=== PATIENT | female | born 1965 | race Caucasian/White ===

== ENCOUNTER 2017-03-22 15:59 | Inpatient (IN) | payer BC ==
[2017-03-22] MEDS ORDERED: SODIUM CHLORIDE 0.9% 1,000 ML IV ONE (16:50)
--- NOTE | 2017-03-22 17:25 | ED ---
Syncope [facility] - General Chief Complaint: Syncope Stated Complaint: Syncope Time Seen by Provider: 03/22/17 16:29 Source: patient Mode of arrival: ambulatory Limitations: no limitations - History of Present Illness Initial Comments: Patient is a 51-year-old female who presents with a chief complaint of a syncopal episode. Patient states that she woke up at 4:00 this morning, drove her work, she got home she took her dogs outside. This was at 5:00 in the morning. Patient states that she doesn't remember what happened however she woke up on her deck at about 1:00 PM. Patient does not admit to any prodromal symptoms. Patient has not had any previous episodes of similar events. The patient does admit that a couple days ago at work she became very lightheaded and needed to catch her breath but states that her symptoms resolved after about 3 minutes. Patient cannot identify any inciting incidences. She does not describe any aggravating or alleviating factors. Patient does admit to having chronic headaches in the morning of which she has not had previously worked up before. Currently the patient is asymptomatic, she has no other complaints at this time - Related Data Home Medications Medication Instructions Recorded Confirmed Umeclidinium Brm/Vilanterol Tr 1 puff INHALATION RT-DAILY 03/22/17 03/22/17 [Anoro Ellipta 62.5-25 Mcg INH] Allergies Allergy/AdvReac Type Severity Reaction Status Date / Time aspirin Allergy Anaphylaxis Verified 03/22/17 16:37 codeine Allergy Unknown Verified 03/22/17 16:37 morphine Allergy Unknown Verified 03/22/17 16:37 Review of Systems ROS Statement: Those systems with pertinent positive or pertinent negative responses have been documented in the HPI. ROS Other: All systems not noted in ROS Statement are negative. Constitutional: Denies: fever, chills Eyes: Denies: vision change ENT: Denies: ear pain, throat pain Respiratory: Denies: dyspnea Cardiovascular: Denies: chest pain, palpitations Endocrine: Denies: fatigue Gastrointestinal: Denies: abdominal pain, nausea, vomiting Genitourinary: Denies: dysuria Musculoskeletal: Denies: back pain Skin: Denies: rash Neurological: Reports: headache Past Medical History Past Medical History: Cancer, COPD, Thyroid Disorder Additional Past Medical History / Comment(s): uterine cancer History of Any Multi-Drug Resistant Organisms: None Reported Past Surgical History: Orthopedic Surgery Past Psychological History: No Psychological Hx Reported Smoking Status: Current every day smoker Past Alcohol Use History: None Reported Past Drug Use History: None Reported General Exam Limitations: no limitations General appearance: alert, in no apparent distress Head exam: Present: atraumatic, normocephalic Eye exam: Present: normal appearance ENT exam: Present: normal exam, mucous membranes moist Neck exam: Present: normal inspection Respiratory exam: Present: decreased breath sounds. Absent: wheezes, rhonchi Cardiovascular Exam: Present: regular rate, normal rhythm, normal heart sounds GI/Abdominal exam: Present: soft. 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] Respiratory 18 18 16 Rate Blood Pressure 121/58 133/72 133/72 Blood Pressure [Sitting] Blood Pressure [Standing] Blood Pressure [Supine] O2 Sat by Pulse 100 100 96 Oximetry 03/22/17 03/22/17 20:00 20:41 Temperature 97 F L Pulse Rate 55 L Pulse Rate [ 53 L Sitting] Pulse Rate [ 66 Standing] Pulse Rate [ 55 L 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 On initial evaluation, vital signs are stable, patient is in no acute distress. Patient is somewhat of a poor historian and therefore it is difficult to narrow down what may have caused the syncopal episode. We'll send basic cardiac workup, patient will have a CT of the head. CPK was sent given the patient was on her deck for about 7 hours. I discussed the presenting symptoms with the patient stated that she would benefit from admission for further workup of syncope. Patient is agreeable to this plan. 8:57 PM I spoke with Dr. Reilly regarding this patient's case. He agrees to admission with consultation to cardiology, and neurology. Lab evaluation of this patient is unremarkable. Radiographic evaluation of the chest and computed tomography scan of the head showed no acute abnormalities. On reexamination, the patient is asymptomatic. Care plan was reviewed with her and her who is now a bedside, they are agreeable to the current care plan. Currently, the patient is stable for transfer to the floor. - Lab Data Result diagrams: 03/22/17 17:06 03/22/17 17:06 Lab Results 03/22/17 03/22/17 03/22/17 Range/Units 17:06 17:06 17:06 WBC 9.8 (3.8-10.6) k/uL RBC 5.10 (3.80-5.40) m/uL Hgb 16.0 (11.4-16.0) gm/dL Hct 48.5 H (34.0-46.0) % MCV 95.1 (80.0-100.0) fL MCH 31.3 (25.0-35.0) pg MCHC 32.9 (31.0-37.0) g/dL RDW 13.9 (11.5-15.5) % Plt Count 365 (150-450) k/uL Neutrophils % 72 % Lymphocytes % 20 % Monocytes % 4 % Eosinophils % 2 % Basophils % 1 % Neutrophils # 7.0 (1.3-7.7) k/uL Lymphocytes # 2.0 (1.0-4.8) k/uL Monocytes # 0.4 (0-1.0) k/uL Eosinophils # 0.2 (0-0.7) k/uL Basophils # 0.1 (0-0.2) k/uL D-Dimer 0.23 (<0.60) mg/L FEU Sodium 139 (137-145) mmol/L Potassium 4.5 (3.5-5.1) mmol/L Chloride 105 (98-107) mmol/L Carbon Dioxide 24 (22-30) mmol/L Anion Gap 10 mmol/L BUN 12 (7-17) mg/dL Creatinine 0.80 (0.52-1.04) mg/dL Est GFR (MDRD) Af Amer >60 (>60 ml/min/1.73 sqM) Est GFR (MDRD) Non-Af >60 (>60 ml/min/1.73 sqM) Glucose 90 (74-99) mg/dL Calcium 9.7 (8.4-10.2) mg/dL Creatine Kinase (30-135) U/L Troponin I (0.000-0.034) ng/mL NT-Pro-B Natriuret Pep pg/mL 03/22/17 03/22/17 03/22/17 Range/Units 17:06 17:06 17:06 WBC (3.8-10.6) k/uL RBC (3.80-5.40) m/uL Hgb (11.4-16.0) gm/dL Hct (34.0-46.0) % MCV (80.0-100.0) fL MCH (25.0-35.0) pg MCHC (31.0-37.0) g/dL RDW (11.5-15.5) % Plt Count (150-450) k/uL Neutrophils % % Lymphocytes % % Monocytes % % Eosinophils % % Basophils % % Neutrophils # (1.3-7.7) k/uL Lymphocytes # (1.0-4.8) k/uL Monocytes # (0-1.0) k/uL Eosinophils # (0-0.7) k/uL Basophils # (0-0.2) k/uL D-Dimer (<0.60) mg/L FEU Sodium (137-145) mmol/L Potassium (3.5-5.1) mmol/L Chloride (98-107) mmol/L Carbon Dioxide (22-30) mmol/L Anion Gap mmol/L BUN (7-17) mg/dL Creatinine (0.52-1.04) mg/dL Est GFR (MDRD) Af Amer (>60 ml/min/1.73 sqM) Est GFR (MDRD) Non-Af (>60 ml/min/1.73 sqM) Glucose (74-99) mg/dL Calcium (8.4-10.2) mg/dL Creatine Kinase 152 H (30-135) U/L Troponin I <0.012 (0.000-0.034) ng/mL NT-Pro-B Natriuret Pep 87 pg/mL Disposition Clinical Impression: Syncope Disposition: ADMITTED IP TO THIS HOSP Condition: Good Referrals: Patrick Reilly MD [Primary Care Provider] - 1-2 days Decision to Admit Reason: Admit from EC - Out of Hospital Transfer - Req. Specs Out of Hospital Transfer - Requested Specifics: Other Non-Acute
[2017-03-22 17:36] LABS: Basophils # (A) 0.1 k/uL (0-0.2); Basophils % (A) 1 %; CH 32.3; CHCM 34.1; Eosinophils # (A) 0.2 k/uL (0-0.7); Eosinophils % (A) 2 %; HCT 48.5 % (34.0-46.0); HDW 2.13; Luc # (Auto) 0.13; Luc % (Auto) 1; Lymphocytes % (A) 20 %; MCH 31.3 pg (25.0-35.0); MCHC 32.9 g/dL (31.0-37.0); MCV 95.1 fL (80.0-100.0); Mean Platelet Volume 7.2; Monocytes # (A) 0.4 k/uL (0-1.0); Monocytes % (A) 4 %; Neutrophils % (A) 72 %; RDW 13.9 % (11.5-15.5); WBC 9.8 k/uL (3.8-10.6); WBC (Perox) 9.98
[2017-03-22 17:39] LABS: Anion Gap 10 mmol/L; Blood Urea Nitrogen 12 mg/dL (7-17); Calcium 9.7 mg/dL (8.4-10.2); Carbon Dioxide 24 mmol/L (22-30); Chloride 105 mmol/L (98-107); Glucose 90 mg/dL (74-99); Non-African American GFR(MDRD) >60 (>60 ml/min/1.73 sqM); Potassium 4.5 mmol/L (3.5-5.1); Sodium 139 mmol/L (137-145)
--- NOTE | 2017-03-22 19:46 | CT ---
EXAMINATION TYPE: CT brain wo con DATE OF EXAM: 03/22/2017 COMPARISON: NONE HISTORY: SYNCOPE CT DLP: 968.3 mGycm Automated exposure control for dose reduction was used. FINDINGS: Ventricles and sulci appear normal. There is no mass effect nor midline shift. There is no sign of in tracranial hemorrhage. Calvarium appears normal. IMPRESSION: NORMAL UNENHANCED HEAD CT SCAN.
--- NOTE | 2017-03-22 19:53 | XR ---
EXAMINATION TYPE: XR chest 2V DATE OF EXAM: 03/22/2017 COMPARISON: NONE HISTORY: Migraine TECHNIQUE: Frontal and lateral views of the chest are obtained. FINDINGS: Heart is normal. There is pulmonary hyperinflation with flattening of the diaphragm. There is mild thoracic dextroscoliosis. There is no sign of pleural effusion. There are small linear densi ties in both lungs consistent with bullous emphysema. IMPRESSION: Bullous emphysema. No definite acute lung disease. Normal heart.
[2017-03-22] MEDS ORDERED: NALOXONE 0.4 MG/ML 1 ML VIAL IV PRN (20:15)
[2017-03-23 07:20] LABS: Glucose,Whole Blood 84 mg/dL (75-99)
[2017-03-23] MEDS ORDERED: NON-FORMULARY DRUG (Umeclidinium Brm/Vilanterol Tr [Anoro Ellipta 62.5-25 Mcg Inh] 1 PUFF) INHALATION SCH (08:00)
[2017-03-23 08:30] LABS: Basophils # (A) 0.1 k/uL (0-0.2); Basophils % (A) 1 %; CH 32.2; CHCM 33.7; Eosinophils # (A) 0.3 k/uL (0-0.7); Eosinophils % (A) 4 %; HCT 39.3 % (34.0-46.0); HDW 2.14; HGB 13.1 gm/dL (11.4-16.0); Luc # (Auto) 0.13; Luc % (Auto) 2; Lymphocytes % (A) 28 %; MCH 31.9 pg (25.0-35.0); MCHC 33.2 g/dL (31.0-37.0); MCV 95.9 fL (80.0-100.0); Mean Platelet Volume 7.1; Monocytes # (A) 0.4 k/uL (0-1.0); Monocytes % (A) 5 %; Neutrophils # (A) 4.4 k/uL (1.3-7.7); Neutrophils % (A) 60 %; RBC 4.09 m/uL (3.80-5.40); RDW 13.5 % (11.5-15.5); WBC 7.3 k/uL (3.8-10.6)
[2017-03-23 08:52] LABS: Anion Gap 6 mmol/L; Blood Urea Nitrogen 12 mg/dL (7-17); Calcium 8.6 mg/dL (8.4-10.2); Carbon Dioxide 22 mmol/L (22-30); Chloride 112 mmol/L (98-107); Glucose 79 mg/dL (74-99); Non-African American GFR(MDRD) >60 (>60 ml/min/1.73 sqM); Potassium 4.5 mmol/L (3.5-5.1); Sodium 140 mmol/L (137-145)
[2017-03-23 11:52] VITALS: BMI 18.8
[2017-03-23 12:48] LABS: Glucose,Whole Blood 75 mg/dL (75-99)
[2017-03-23] MEDS ORDERED: LORazepam 0.5 MG TAB PO PRN (14:08)
--- NOTE | 2017-03-23 15:12 | CONS ---
CONSULTATION ATTENDING: Dr. Reilly. Mrs. Wesley is a 51-year-old female with known history of chronic tobacco use, history of chronic obstructive lung disease, who presented with a syncopal episode. According to her, she took her to work at 4:00, came back home to take the dog outside around 5:00 and then she remembers waking up on the deck around 1:00. She had her coat on when she came to. She did not have any focal weakness. She was feeling cold. She did not recall anything of the event. She denies any symptoms prior to her passing out. No palpitation. No dizziness. No chest pain. She has dyspnea on exertion related to her chronic tobacco use, although she cut down on her smoking to a few cigarettes a day. She used to smoke up to a pack and half a day. She denies any prior cardiac history. She has no clear PND, orthopnea or significant peripheral edema. She has no recent cardiac workup. Her coronary risk factors are remarkable for smoking. No history of hypertension. No diabetes. She has hypoglycemia in the past. Her lipid profile is not available to. Her only medications at home Anoro Ellipta. REVIEW OF SYSTEMS: RESPIRATORY: She has chronic obstructive lung disease with dyspnea on exertion. No recent fever. GI: No recent GI bleeding. No peptic ulcer disease. : No dysuria or hematuria. NERVOUS: She carries a diagnosis of stroke in the past. SOCIAL HISTORY: She denies any alcohol intake. PHYSICAL EXAMINATION: A 51-year-old female; alert, oriented, in no apparent distress. Blood pressure running in the high 90s up to the 130s. Heart rate in the 50s and 60s. HEAD: Normocephalic. EYES: Sclerae anicteric. NECK: Good carotid upstroke. No bruits. No jugular venous distention. LUNGS: With decreased air exchange. No wheezes. HEART: Regular rate and rhythm. S1, S2. No S3. No rub appreciated. ABDOMEN: Soft, nontender. Positive bowel sounds. No organomegaly. EXTREMITIES: No edema. Intact distal pulses. LAB DATA: Revealed troponin less than 0.012. NT-proBNP of 87, BUN and creatinine of 12 and 0.87, potassium 4.5. Hemoglobin 13.1. EKG was sinus mechanism with RSR with no acute changes. Chest x-ray revealed no infiltrate with bullous emphysema. Brain CT showed no acute changes. IMPRESSION: 1. Syncopal episode of unclear etiology. No clear evidence to suggest ischemic event as the etiology. There is no clear documented hypoglycemia. No evidence to suggest ischemic event. 2. Chronic obstructive lung disease with chronic tobacco use. RECOMMENDATION: From the cardiac standpoint, will continue telemetry monitoring. I will obtain echocardiogram with Doppler. Will increase her level of activity and depending on the finding, further recommendation will be made. Thank you for this consult. Will follow with you. MMODL / IJN: [id number] /
--- NOTE | 2017-03-23 16:09 | ECHOF ---
Referral Reason:syncope MEASUREMENTS -------- HEIGHT: 162.6 cm WEIGHT: 49.9 kg BP: 98/60 RVIDd: 2.7 cm (< 3.3) IVSd: 0.8 cm (0.6 - 1.1) LVIDd: 3.8 cm (3.9 - 5.3) LVPWd: 1.0 cm (0.6 - 1.1) IVSs: 1.3 cm LVIDs: 2.3 cm LVPWs: 1.5 cm LA Diam: 2.5 cm (2.7 - 3.8) LAESV Index (A-L): 21.75 ml/m Ao Diam: 3.0 cm (2.0 - 3.7) AV Cusp: 1.6 cm (1.5 - 2.6) MV EXCURSION: 17.657 mm (> 18.000) MV EF SLOPE: 114 mm/s (70 - 150) EPSS: 0.4 cm MV E José Luis: 0.81 m/s MV DecT: 272 ms MV A José Luis: 0.64 m/s MV E/A Ratio: 1.26 RAP: 5.00 mmHg RVSP: 32.66 mmHg FINDINGS -------- Sinus rhythm. This was a technically adequate study. The left ventricular size is normal. Left ventricular wall thickness is normal. Overall left ventricular systolic function is normal with, an EF between 55 - 60 %. The right ventricle is normal in size. Normal LA size by volume 22+/-6 ml/m2. The right atrium is normal in size. The aortic valve is trileaflet, and appears structurally normal. No aortic stenosis or regurgitation. The mitral valve is normal. There is trace mitral regurgitation. Mild tricuspid regurgitation present. Right ventricular systolic pressure is normal at < 35 mmHg. There is no pulmonic regurgitation present. The aortic root size is normal. The inferior vena cava is mildly dilated. There is no pericardial effusion. Small Pleural Effusion. CONCLUSIONS -------- 1. Sinus rhythm. 2. There is no pulmonic regurgitation present. 3. The aortic root size is normal. 4. The inferior vena cava is mildly dilated. 5. There is no pericardial effusion. 6. Small Pleural Effusion. 7. This was a technically adequate study. 8. Left ventricular wall thickness is normal. 9. Overall left ventricular systolic function is normal with, an EF between 55 - 60 %. 10. Normal LA size by volume 22+/-6 ml/m2. 11. The aortic valve is trileaflet, and appears structurally normal. No aortic stenosis or regurgitation. 12. There is trace mitral regurgitation. 13. Mild tricuspid regurgitation present. 14. Right ventricular systolic pressure is normal at < 35 mmHg. SUPERVISOR TELEVISION CHASSIS REPAIR: Mary Barr RDCS
[2017-03-23 16:52] LABS: Glucose,Whole Blood 82 mg/dL (75-99)
--- NOTE | 2017-03-23 16:55 | P.CNNES ---
History of Present Illness Consult date: 03/23/17 Requesting physician: Patrick Reilly Reason for Consult: Syncope History of Present Illness: Patient is a pleasant 51-year-old female who is being evaluated by the neurology service on 03/23/2017 per the request of Dr. Patrick Reilly for syncope. Patient has a history of chronic tobacco use, COPD, and reported hypoglycemia. Patient states she took her work at 4 AM and then returned home she states she took her dog out at 5 AM and that is the last thing she remembers. She states she woke up at about 12:50 PM and found herself lying on the patio. She denies any lateralizing weakness. She does not describe a postictal state. She states she felt cold and went into the house. She states she hurt her cell phone ringing but did not answer it. She reports when she looked at the time she knew she should have been at work. She denies any precipitating events that she knows of. She denies palpitations or dizziness. She does report a history of hypoglycemia but this was not found on admission. Vital signs and admission for, pulse rate 80, respiratory rate 16, blood pressure 133/72, oxygen saturation 96% on room air. Creatinine kinase was elevated at 152, TSH is 9.50, otherwise labs were within normal limits. Her only medication at home is an inhaler for her COPD. At the time of my evaluation, patient's resting comfortably in bed and appears to be in no acute distress. Review of Systems REVIEW OF SYSTEMS: Otherwise unremarkable and noncontributory. Past Medical History Past Medical History: Cancer, COPD, Thyroid Disorder Additional Past Medical History / Comment(s): uterine cancer History of Any Multi-Drug Resistant Organisms: None Reported Past Surgical History: Orthopedic Surgery Additional Past Surgical History / Comment(s): "pin put in finger on right hand " Past Psychological History: No Psychological Hx Reported Smoking Status: Current every day smoker Past Alcohol Use History: None Reported Past Drug Use History: None Reported - Past Family History Mother Family Medical History: COPD, Pneumonia Additional Family Medical History / Comment(s): of an aneurysm of the brain. Father Additional Family Medical History / Comment(s): of prostate and colon cancer. Brother(s) History Unknown: Yes Sister(s) Family Medical History: Thyroid Disorder Additional Family Medical History / Comment(s): sister from MRSA. other sister has lymphoma cancer Medications and Allergies Home Medications Medication Instructions Recorded Confirmed Type Umeclidinium Brm/Vilanterol Tr 1 puff INHALATION RT-DAILY 03/22/17 03/22/17 History [Anoro Ellipta 62.5-25 Mcg INH] Allergies Allergy/AdvReac Type Severity Reaction Status Date / Time aspirin Allergy Anaphylaxis Verified 03/22/17 16:37 codeine Allergy Unknown Verified 03/22/17 16:37 morphine Allergy Unknown Verified 03/22/17 16:37 Physical Examination - Vital Signs Vital Signs: Vital Signs Temp Pulse Pulse Pulse Pulse Pulse Resp 03/23/17 14:13 97.6 F 57 L 18 03/23/17 13:58 97.6 F 57 L 18 03/23/17 07:00 97.8 F 49 L 16 03/23/17 00:00 53 L 03/22/17 23:33 97.8 F 53 L 16 03/22/17 20:41 53 L 66 55 L 16 03/22/17 20:00 97 F L 55 L 16 03/22/17 18:28 80 16 03/22/17 16:39 97 F L 67 18 BP BP BP BP BP Pulse Ox 03/23/17 14:13 98/60 96 03/23/17 13:58 98/60 96 03/23/17 07:00 115/72 97 03/23/17 00:00 03/22/17 23:33 125/66 97 03/22/17 20:41 118/71 124/71 113/66 03/22/17 20:00 133/71 97 03/22/17 18:28 133/72 96 03/22/17 16:39 133/72 100 Intake and Output 03/23/17 03/23/17 03/23/17 06:59 14:59 22:59 Intake Total 700 Balance 700 Intake: Oral 700 Other: # Voids 2 1 Weight 49.895 kg Patient Weight 03/24/17 06:59 Weight 49.895 kg PHYSICAL EXAM: GENERAL APPEARANCE: Patient is a well-developed, female who appears to be in no acute distress. HEENT: Normocephalic, atraumatic, no facial asymmetry is seen. Neck is supple with no masses felt. CARDIOVASCULAR: Regular rate and rhythm. ABDOMEN: Nontender, nondistended. EXTREMITIES: Show no edema or clubbing. NEUROLOGICAL EXAM: Patient is awake, alert, and oriented 3. Speech and language are normal. Strength is full in all 4 extremities. Sensory exam to light touch is normal in all 4 extremities. No facial asymmetry is seen on cranial nerve testing. No tremors or seizure-like activities noted. Results - Laboratory Findings CBC and BMP: 03/23/17 07:18 03/23/17 07:20 Abnormal Lab Findings: Abnormal Labs 03/22/17 03/22/17 03/23/17 17:06 17:06 07:20 Hct 48.5 H Chloride 112 H Creatine Kinase 152 H TSH 9.500 H Assessment and Plan Plan: Impression: 1. Syncope, possible transient amnestic attack due to transient ischemic attack 2. History of hypoglycemia 3. COPD 4. Tobacco use Recommendations: It does appear that patient had syncopal episode with loss of time. I doubt this is seizure activity. Cannot exclude a transient amnestic attack related to transient ischemic attack. There is no definitive evidence that this was related to hypoglycemia. I will order an MRI of the brain and carotid Dopplers to evaluate for contributing etiology. I will order an EEG, fasting lipid panel, and serum homocystine level. I will start her on low-dose 81 mg aspirin by mouth daily. Continue neurological checks. Cardiology input noted. I will continue to follow with you. Further recommendations to follow. Thank you for allowing me to participate in the care of your patient. Feel free to call with any questions or concerns. I performed an examination of the patient and discussed the management with the ELECTRICIAN'S ASSISTANT. I have reviewed the ELECTRICIAN'S ASSISTANT notes and agree with the findings and plan of care.
--- NOTE | 2017-03-23 19:55 | US ---
EXAMINATION TYPE: US carotid duplex BILAT DATE OF EXAM: 03/23/2017 COMPARISON: NONE CLINICAL HISTORY: Syncope. EXAM MEASUREMENTS: RIGHT: Peak Systolic Velocity (PSV) cm/sec ----- Right CCA: 88.6 ----- Right ICA: 111.8 ----- Right ECA: 91.5 ICA/CCA ratio: 1.3 RIGHT: End Diastole cm/sec ----- Right CCA: 30.4 ----- Right ICA: 40.6 ----- Right ECA: 26.0 LEFT: Peak Systolic Velocity (PSV) cm/sec ----- Left CCA: 103.0 ----- Left ICA: 97.7 ----- Left ECA: 95.1 ICA/CCA ratio: 0.9 LEFT: End Diastole cm/sec ----- Left CCA: 25.0 ----- Left ICA: 35.6 ----- Left ECA: 21.0 VERTEBRALS (direction of flow): Right Vertebral: Antegrade Left Vertebral: Antegrade Rhythm: Normal Mild plaque noted bilateral bifurcations. No evidence of significant stenosis Intimal thickening is present. IMPRESSION: 1. Intimal thickening with some plaquing at the bifurcations without significant flow-limiting stenos is. Criteria for Assigning % of Stenosis / Diameter reduction (Estimation based on the indirect measurements of the internal carotid artery velocities (ICA PSV). 1. Normal (no stenosis)=ICA PSV < 125 cm/s: ratio < 2.0: ICA EDV<40 cm/s. 2. Less than 50% stenosis=ICA PSV < 125 cm/s: ratio < 2.0: ICA EDV<40 cm/s. 3. 50 to 69% stenosis=ICA PSV of 125 to 230 cm/s: ration 2.0 ? 4.0: ICA EDV 40-100 cm/s. 4. Greater than 70% stenosis to near occlusion= ICA PSV > 230 cm/s: ratio > 4.0: ICA EDV > 100 cm/s. 5. Near occlusion= ICA PSV velocities may be low or undetectable: variable ratio and ICA EDV. 6. Total occlusion=unable to detect flow.
[2017-03-23 20:39] LABS: Glucose,Whole Blood 99 mg/dL (75-99)
[2017-03-23 23:15] VITALS: RESP 16
[2017-03-24 07:12] LABS: Glucose,Whole Blood 88 mg/dL (75-99)
[2017-03-24 07:19] VITALS: BP 93/73; PULSE 64; TEMP 97.1
[2017-03-24 07:30] LABS: Cholesterol 185 mg/dL (<200); HDL Cholesterol 66 mg/dL (40-60)
[2017-03-24 12:05] LABS: Glucose,Whole Blood 66 mg/dL (75-99)
--- NOTE | 2017-03-24 12:07 | P.PN ---
Subjective Principal diagnosis: Patient is a pleasant 51-year-old female who is being followed by the neurology service for syncope. Patient has not had any recurrent episodes since admission. Patient denies any symptoms consistent with syncope or near syncope. Patient has no lateralizing weakness. She has no speech deficits or confusion. Patient does not have any history of seizures. Her syncopal episode was not witnessed. She does not describe postictal state. This most likely was a transient amnestic attack related to transient ischemic attack. There is no definitive evidence that this was a hypoglycemic reaction. Carotid Dopplers were negative for any hemodynamically significant stenosis. As you recall, CT of the head was unremarkable. At the time of my evaluation, patient is resting comfortably in bed and appears to be in no acute distress. Objective - Vital Signs Vital signs: Vital Signs Temp 97.1 F L 03/24/17 07:00 Pulse 64 03/24/17 07:00 Resp 16 03/24/17 07:00 BP 93/73 03/24/17 07:00 Pulse Ox 94 L 03/24/17 07:00 Intake & Output 03/23/17 03/24/17 03/24/17 18:59 06:59 18:59 Intake Total 700 Balance 700 Weight 49.895 kg Intake: Oral 700 Other: # Voids 1 0 - Exam PHYSICAL EXAM: GENERAL APPEARANCE: Patient is a well-developed, female who appears to be in no acute distress. HEENT: Normocephalic, atraumatic, no facial asymmetry is seen. Neck is supple with no masses felt. CARDIOVASCULAR: Regular rate and rhythm. ABDOMEN: Nontender, nondistended. EXTREMITIES: Show no edema or clubbing. NEUROLOGICAL EXAM: Patient is awake, alert, and oriented 3. Speech and language are normal. Strength is full in all 4 extremities. Sensory exam to light touch is normal in all 4 extremities. No facial asymmetry is seen on cranial nerve testing. No tremors or seizure-like activity noted. - Labs CBC & Chem 7: 03/23/17 07:18 03/23/17 07:20 Labs: Abnormal Lab Results - Last 24 Hours (Table) 03/24/17 Range/Units 07:00 LDL Cholesterol, Calc 104 H (0-99) mg/dL HDL Cholesterol 66 H (40-60) mg/dL Assessment and Plan Plan: Impression: 1. Syncope, possible transient amnestic attack due to transient ischemic attack 2. History of hypoglycemia 3. COPD 4. Tobacco use Recommendations: It does appear that patient had syncopal episode with loss of time. I doubt this is seizure activity. Cannot exclude a transient amnestic attack related to transient ischemic attack. There is no definitive evidence that this was related to hypoglycemia. Carotid Dopplers were negative for any hemodynamically significant stenosis. Patient is refusing EEG and MRI. Her fasting lipid panel shows slightly elevated LDL at 104 and HDL of 66. Serum homocystine level is pending. I will start her on Plavix 75 mg by mouth daily since she is ALLERGIC to aspirin. Continue neurological checks. Cardiology input noted. Patient is stable from a neurological standpoint for discharge. Patient should follow up in the office in 2 weeks. I will continue to follow with you. Further recommendations to follow. I performed an examination of the patient and discussed the management with the LEAD BASED PAINT TECHNICIAN. I have reviewed the LEAD BASED PAINT TECHNICIAN notes and agree with the findings and plan of care.
[2017-03-24 12:16] LABS: Glucose,Whole Blood 116 mg/dL (75-99)
[2017-03-24] MEDS ORDERED: CLOPIDOGREL 75 MG TAB PO SCH (12:30)
--- NOTE | 2017-03-24 14:16 | PN ---
PROGRESS NOTE Mrs. Wesley is a 51-year-old female who presented with a syncopal episode of unclear etiology. She is feeling well today. She has been ambulating without difficulty. Denying any chest pain. No dizziness or palpitation. On the monitor she is in sinus mechanism. There is no evidence off the tachy or Eduardo arrhythmia. She had an echocardiogram that revealed a preserved ventricular size and systolic function. She continues to be at this time on Plavix. PHYSICAL EXAMINATION: Blood pressure 112/60 with a heart in 60. LUNGS: Clear. HEART: Regular rate and rhythm S1, S2. No S3. No rub. ABDOMEN: Soft, nontender. EXTREMITIES: No edema. IMPRESSION: 1. Syncopal episode of unclear etiology. 2. Chronic tobacco use. RECOMMENDATION: From the cardiac standpoint, she should be able to be discharged home today. We will see her in the office in few week for further followup. Depending on her progress, further recommendation will be made. MMODL / IJN: [id number] /
--- NOTE | 2017-03-27 10:01 | EEG ---
ELECTROENCEPHALOGRAM REPORT DATE OF SERVICE: 03/23/2017. REASON FOR TESTING: Syncope. DESCRIPTION OF THE PROCEDURE: This EEG was performed using a 21 channel digital electroencephalograph, following international 10-20 system. DESCRIPTION OF THE RECORDING: From the beginning of the tracing, and with patient's eyes closed, the background rhythm was mostly consisting of 9 Hz alpha frequency in the posterior occipital leads. No obvious asymmetry is seen. Photic stimulation was performed with a good driving response seen. No pathological waves were elicited. Hyperventilation was not performed. Later in the tracing, the patient does reach stage II of sleep, and occasional sleep spindles and K complexes are seen. No epileptiform discharges were seen. Her EKG lead showed a regular rate and rhythm. INTERPRETATION: This asleep and awake EEG can be considered within normal limits. There is no asymmetry seen. No epileptiform discharges were noticed. The absence of epileptiform discharges does not rule out the diagnosis of epilepsy, therefore clinical correlation is recommended. MMZARINAL / IJRanjan: [id number] /
== END 2017-03-24 13:10 | disposition home or self-care (01) | DRG 312 ==
LOC: EC 15:59 → 4MS4W 20:15
PROVIDERS: ADMIT Family Medicine; ATTEND Family Medicine
DX: R55 Syncope and collapse (principal); J44.9 Chronic obstructive pulmonary disease, unspecified; E07.9 Disorder of thyroid, unspecified; F17.210 Nicotine dependence, cigarettes, uncomplicated; Z79.899 Other long term (current) drug therapy; Z85.42 Personal history of malignant neoplasm of other parts of uterus; Z88.6 Allergy status to analgesic agent; Z88.5 Allergy status to narcotic agent
CPT/HCPCS: 36415; 70450; 71020; 80048; 80061; 82550; 83090; 83880; 84439; 84443; 84484; 85025; 85379; 93005; 93306; 93880; 95816; 96360; 96361; 99285

== ENCOUNTER → 2017-09-19 | Outpatient (CLI) | payer BC ==
--- NOTE | 2017-09-24 10:11 | P.ARTDOP ---
Arterial Doppler LOWER EXTREMITY ARTERIAL DOPPLER: DATE OF SERVICE: 09/19/2017 Reason for study: Bilateral leg swelling. Doppler waveforms: Multiphasic bilaterally throughout. Pulse volume recording: Normal configuration. Pressure gradients: None. Ankle-brachial indices: Greater than 1 bilaterally. Toe pressures: [] on the right, [] on the left Impression: Normal study.
== END | disposition home or self-care (01) ==
LOC: RADUSWWP 08:35
PROVIDERS: ATTEND Family Medicine
DX: M79.89 Other specified soft tissue disorders (principal)
CPT/HCPCS: 93923

== ENCOUNTER 2018-11-18 11:37 | Observation (INO) | payer BC, OTHER ==
[2018-11-18] MEDS ORDERED: SODIUM CHLORIDE 0.9% 1,000 ML IV STA (13:21)
--- NOTE | 2018-11-18 13:24 | ED ---
General Adult HPI - General Chief complaint: Nausea/Vomiting/Diarrhea Stated complaint: Vomiting Time Seen by Provider: 11/18/18 13:16 Source: patient, RN notes reviewed, old records reviewed Mode of arrival: ambulatory Limitations: no limitations - History of Present Illness Initial comments: 53-year-old female presenting for evaluation of abdominal pain nausea vomiting. Patient's symptoms have been present for the past 10 days. She states her last bowel movement was one week ago. Denies any diarrhea. Denies fever or chills. She's had nausea vomiting throughout this course. She states she is unable to tolerate anything by mouth. She vomits immediately after eating. She denies preceding nausea. She has remote history of uterine cancer status post hysterectomy. No other abdominal surgeries. No fever or chills. No chest pain or dyspnea. - Related Data Home Medications Medication Instructions Recorded Confirmed Levothyroxine Sodium [Synthroid] 75 mcg PO DAILY 11/18/18 11/18/18 Allergies Allergy/AdvReac Type Severity Reaction Status Date / Time aspirin Allergy Anaphylaxis Verified 11/18/18 13:35 codeine Allergy Unknown Verified 11/18/18 13:35 morphine Allergy Unknown Verified 11/18/18 13:35 Review of Systems ROS Statement: Those systems with pertinent positive or pertinent negative responses have been documented in the HPI. ROS Other: All systems not noted in ROS Statement are negative. Past Medical History Past Medical History: Cancer, COPD, Thyroid Disorder Additional Past Medical History / Comment(s): uterine cancer History of Any Multi-Drug Resistant Organisms: None Reported Past Surgical History: Orthopedic Surgery Additional Past Surgical History / Comment(s): "pin put in finger on right hand" Past Psychological History: No Psychological Hx Reported Smoking Status: Former smoker Past Alcohol Use History: None Reported Past Drug Use History: None Reported - Past Family History Mother Family Medical History: COPD, Pneumonia Additional Family Medical History / Comment(s): of an aneurysm of the brain. Father Additional Family Medical History / Comment(s): of prostate and colon cancer. Brother(s) History Unknown: Yes Sister(s) Family Medical History: Thyroid Disorder Additional Family Medical History / Comment(s): sister from MRSA. other sister has lymphoma cancer General Exam Limitations: no limitations General appearance: alert, in no apparent distress Head exam: Present: atraumatic, normocephalic Eye exam: Present: normal appearance, PERRL ENT exam: Present: mucous membranes dry Neck exam: Present: normal inspection. Absent: tenderness, meningismus Respiratory exam: Present: normal lung sounds bilaterally. Absent: respiratory distress, wheezes Cardiovascular Exam: Present: regular rate, normal rhythm GI/Abdominal exam: Present: soft, tenderness (Left upper quadrant tenderness to palpation). Absent: distended Extremities exam: Present: normal inspection, normal capillary refill. Absent: pedal edema, calf tenderness Neurological exam: Present: alert, oriented X3, CN II-XII intact. Absent: motor sensory deficit Psychiatric exam: Present: normal affect, normal mood Skin exam: Present: warm, dry, intact. Absent: cyanosis, diaphoretic Course Vital Signs 11/18/18 12:38 Temperature 98.9 F Pulse Rate 77 Respiratory 18 Rate Blood Pressure 143/79 O2 Sat by Pulse 99 Oximetry Medical Decision Making - Medical Decision Making 53-year-old female with abdominal pain and vomiting. Symptoms present for 10 days. Patient is tender on exam. She has stable vitals. Appears dehydrated. No alcohol, no NSAIDs. CT performed, shows severe gastritis. She has a red blood cell count 12.0, hemoglobin is low, normal CMP. Urinalysis is contaminated, culture will be obtained. Patient started on IV hydration, proton pump inhibitor. She will be admitted for dehydration, gastritis and abdominal pain. Gastric neurology placed on consult. Case discussed with admitting physician. - Lab Data Result diagrams: 11/18/18 13:30 11/18/18 13:30 Lab Results 11/18/18 11/18/18 11/18/18 Range/Units 13:30 13:30 13:30 WBC 12.1 H (3.8-10.6) k/uL RBC 4.83 (3.80-5.40) m/uL Hgb 14.2 (11.4-16.0) gm/dL Hct 42.2 (34.0-46.0) % MCV 87.4 (80.0-100.0) fL MCH 29.4 (25.0-35.0) pg MCHC 33.7 (31.0-37.0) g/dL RDW 13.5 (11.5-15.5) % Plt Count 422 (150-450) k/uL Neutrophils % 76 % Lymphocytes % 17 % Monocytes % 4 % Eosinophils % 1 % Basophils % 1 % Neutrophils # 9.2 H (1.3-7.7) k/uL Lymphocytes # 2.0 (1.0-4.8) k/uL Monocytes # 0.5 (0-1.0) k/uL Eosinophils # 0.2 (0-0.7) k/uL Basophils # 0.1 (0-0.2) k/uL PT (9.0-12.0) sec INR (<1.2) APTT (22.0-30.0) sec Sodium 135 L (137-145) mmol/L Potassium 4.6 (3.5-5.1) mmol/L Chloride 102 (98-107) mmol/L Carbon Dioxide 25 (22-30) mmol/L Anion Gap 8 mmol/L BUN 10 (7-17) mg/dL Creatinine 0.72 (0.52-1.04) mg/dL Est GFR (CKD-EPI)AfAm >90 (>60 ml/min/1.73 sqM) Est GFR (CKD-EPI)NonAf >90 (>60 ml/min/1.73 sqM) Glucose 88 (74-99) mg/dL Plasma Lactic Acid Mane 0.7 (0.7-2.0) mmol/L Calcium 9.6 (8.4-10.2) mg/dL Total Bilirubin 0.5 (0.2-1.3) mg/dL AST 16 (14-36) U/L ALT 14 (9-52) U/L Alkaline Phosphatase 61 (38-126) U/L Total Protein 7.0 (6.3-8.2) g/dL Albumin 4.1 (3.5-5.0) g/dL Amylase 55 (30-110) U/L Lipase 72 (23-300) U/L Urine Color Urine Appearance (Clear) Urine pH (5.0-8.0) Ur Specific [place] (1.001-1.035) Urine Protein (Negative) Urine Glucose (UA) (Negative) Urine Ketones (Negative) Urine Blood (Negative) Urine Nitrite (Negative) Urine Bilirubin (Negative) Urine Urobilinogen (<2.0) mg/dL Ur Leukocyte Esterase (Negative) Urine RBC (0-5) /hpf Urine WBC (0-5) /hpf Ur Squamous Epith Cells (0-4) /hpf Urine Bacteria (None) /hpf Hyaline Casts (0-2) /lpf Urine Mucus (None) /hpf 11/18/18 11/18/18 Range/Units 13:30 13:30 WBC (3.8-10.6) k/uL RBC (3.80-5.40) m/uL Hgb (11.4-16.0) gm/dL Hct (34.0-46.0) % MCV (80.0-100.0) fL MCH (25.0-35.0) pg MCHC (31.0-37.0) g/dL RDW (11.5-15.5) % Plt Count (150-450) k/uL Neutrophils % % Lymphocytes % % Monocytes % % Eosinophils % % Basophils % % Neutrophils # (1.3-7.7) k/uL Lymphocytes # (1.0-4.8) k/uL Monocytes # (0-1.0) k/uL Eosinophils # (0-0.7) k/uL Basophils # (0-0.2) k/uL PT 10.0 (9.0-12.0) sec INR 0.9 (<1.2) APTT 22.6 (22.0-30.0) sec Sodium (137-145) mmol/L Potassium (3.5-5.1) mmol/L Chloride (98-107) mmol/L Carbon Dioxide (22-30) mmol/L Anion Gap mmol/L BUN (7-17) mg/dL Creatinine (0.52-1.04) mg/dL Est GFR (CKD-EPI)AfAm (>60 ml/min/1.73 sqM) Est GFR (CKD-EPI)NonAf (>60 ml/min/1.73 sqM) Glucose (74-99) mg/dL Plasma Lactic Acid Mane (0.7-2.0) mmol/L Calcium (8.4-10.2) mg/dL Total Bilirubin (0.2-1.3) mg/dL AST (14-36) U/L ALT (9-52) U/L Alkaline Phosphatase (38-126) U/L Total Protein (6.3-8.2) g/dL Albumin (3.5-5.0) g/dL Amylase (30-110) U/L Lipase (23-300) U/L Urine Color Yellow Urine Appearance Cloudy H (Clear) Urine pH 5.5 (5.0-8.0) Ur Specific [place] 1.030 (1.001-1.035) Urine Protein 1+ H (Negative) Urine Glucose (UA) Negative (Negative) Urine Ketones 1+ H (Negative) Urine Blood Moderate H (Negative) Urine Nitrite Negative (Negative) Urine Bilirubin Negative (Negative) Urine Urobilinogen 2.0 (<2.0) mg/dL Ur Leukocyte Esterase Trace H (Negative) Urine RBC 31 H (0-5) /hpf Urine WBC 13 H (0-5) /hpf Ur Squamous Epith Cells 14 H (0-4) /hpf Urine Bacteria Few H (None) /hpf Hyaline Casts 8 H (0-2) /lpf Urine Mucus Many H (None) /hpf Disposition Clinical Impression: Dehydration, Gastritis Disposition: ADMITTED IP TO THIS [facility] Condition: Stable Is patient prescribed a controlled substance at d/c from ED?: No Referrals: Patrick Reilly MD [Primary Care Provider] - 1-2 days Decision to Admit Reason: Admit from EC Decision Date: 11/18/18 Decision Time: 15:08
[2018-11-18 13:51] LABS: Basophils # (A) 0.1 k/uL (0-0.2); Basophils % (A) 1 %; Eosinophils # (A) 0.2 k/uL (0-0.7); Eosinophils % (A) 1 %; HCT 42.2 % (34.0-46.0); HGB 14.2 gm/dL (11.4-16.0); Lymphocytes % (A) 17 %; MCH 29.4 pg (25.0-35.0); MCHC 33.7 g/dL (31.0-37.0); MCV 87.4 fL (80.0-100.0); Mean Platelet Volume 6.6; Monocytes # (A) 0.5 k/uL (0-1.0); Monocytes % (A) 4 %; Neutrophils # (A) 9.2 k/uL (1.3-7.7); Neutrophils % (A) 76 %; Platelet Count 422 k/uL (150-450); RBC 4.83 m/uL (3.80-5.40); RDW 13.5 % (11.5-15.5); WBC 12.1 k/uL (3.8-10.6)
[2018-11-18 13:57] LABS: INR 0.9 (<1.2); Partial Thromboplastin Time 22.6 sec (22.0-30.0)
[2018-11-18 14:01] LABS: Appearance,Urine Cloudy (Clear); Bacteria,Urine Few /hpf; Bilirubin,Urine Negative (Negative); Blood,Urine Moderate (Negative); Color,Urine Yellow; Glucose,Urine (UA) Negative (Negative); Hyaline Casts,Urine 8 /lpf (0-2); Ketones,Urine 1+ (Negative); Leukocyte Esterase,Urine Trace (Negative); Mucus,Urine Many /hpf; Nitrite,Urine Negative (Negative); PH, Urine 5.5 (5.0-8.0); Protein,Urine 1+ (Negative); RBC,Urine 31 /hpf (0-5); Squamous Epithelial Cell,Urine 14 /hpf (0-4); WBC,Urine 13 /hpf (0-5)
[2018-11-18 14:05] LABS: ALT 14 U/L (9-52); AST 16 U/L (14-36); Albumin 4.1 g/dL (3.5-5.0); Alkaline Phosphatase 61 U/L (38-126); Amylase 55 U/L (30-110); Anion Gap 8 mmol/L; Blood Urea Nitrogen 10 mg/dL (7-17); Calcium 9.6 mg/dL (8.4-10.2); Carbon Dioxide 25 mmol/L (22-30); Chloride 102 mmol/L (98-107); Glucose 88 mg/dL (74-99); Lipase 72 U/L (23-300); Potassium 4.6 mmol/L (3.5-5.1); Sodium 135 mmol/L (137-145); Total Bilirubin 0.5 mg/dL (0.2-1.3)
--- NOTE | 2018-11-18 14:05 | XR ---
EXAMINATION TYPE: XR KUB DATE OF EXAM: 11/18/2018 1:58 PM CLINICAL HISTORY: Lower abdominal pain with vomiting and nausea for 10 days TECHNIQUE: Two Upright KUB images of the abdomen are obtained. COMPARISON: X-ray and CT April 04, 2010. FINDINGS: Scattered gas is seen in non-distended stomach and small bowel loops. Gas and fecal materia l is seen in non-distended colon and rectum. There is no visceromegaly, pneumoperitoneum, or abnormal calcification appreciated. Underlying levoconvex scoliotic curvature is redemonstrated. Lung bases r emain clear. IMPRESSION: Overall nonobstructive bowel gas pattern.
--- NOTE | 2018-11-18 14:45 | CT ---
EXAMINATION TYPE: CT abdomen pelvis w con DATE OF EXAM: 11/18/2018 HISTORY: Left upper abdominal pain CT DLP: 392.1mGycm Automated Exposure Control for Dose Reduction was Utilized. CONTRAST: CT scan of the abdomen and pelvis is performed without oral but with IV Contrast, patient injected wi th 98 mL of Isovue 300. COMPARISON: CT abdomen pelvis April 04, 2010 FINDINGS: LUNG BASES: There is redemonstration of central and peripheral bulla and bleb formation with progress ion from prior study. Small pericardial effusion anterior inferior aspect is redemonstrated. LIVER/GB: Liver size is stable and upper limits of normal. PANCREAS: No significant abnormality is seen. SPLEEN: No significant abnormality is seen. ADRENALS: No significant abnormality is seen. KIDNEYS: No significant abnormality is seen. BOWEL: Evaluation bowel suboptimal due to lack of enteric contrast and patient having little intra-ab dominal fat. There is moderate to severe wall thickening or prominent folds throughout the stomach. T here is no suspicious small or large bowel dilatation UTERUS/ADNEXA: Anteverted uterus likely present axial image 60. New moderate amount of free fluid in pelvic cul-de-sac extending right of midline axial image 57. LYMPH NODES: No greater than 1cm abdominal or pelvic lymph nodes are appreciated. OSSEOUS STRUCTURES: Levoconvex scoliosis centered L1 level is redemonstrated. OTHER: Mild to moderate calcified plaque of aorta extends into iliac branch vessels. Somewhat high or igin of celiac artery and SMA as well as bilateral single renal arteries noted. IMPRESSION: 1. Suboptimal evaluation of bowel without enteric contrast. A severe diffuse gastritis is felt presen t, correlate clinically. No bowel obstruction. Moderate amount of free fluid in pelvic cul-de-sac, ab normal finding in postmenopausal female, etiology uncertain.
[2018-11-18] MEDS ORDERED: PANTOPRAZOLE 40 MG/10 ML VIAL IVP STA (15:00)
[2018-11-18] MEDS ORDERED: ONDANSETRON 4 MG/2 ML VIAL IVP PRN (15:06)
[2018-11-18] MEDS ORDERED: NALOXONE 0.4 MG/ML 1 ML VIAL IV PRN (15:06)
[2018-11-18] MEDS ORDERED: ACETAMINOPHEN TAB 325 MG TAB PO PRN (15:06)
[2018-11-18] MEDS: SODIUM CHLORIDE 0.9% 1,000 ML IV SCH (15:27)
[2018-11-18 17:14] VITALS: BMI 16.3
[2018-11-18] MEDS: PANTOPRAZOLE 40 MG/10 ML VIAL IVP SCH (20:34)
[2018-11-19] MEDS: SODIUM CHLORIDE 0.9% 1,000 ML IV SCH (03:40)
[2018-11-19] MEDS: PANTOPRAZOLE 40 MG/10 ML VIAL IVP SCH (08:39)
--- NOTE | 2018-11-19 13:14 | P.CONS ---
History of Present Illness - Reason for Consult Consult date: 11/19/18 Epigastric abdominal pain nausea vomiting Requesting physician: Patrick Reilly - Chief Complaint Epigastric abdominal pain nausea vomiting - History of Present Illness 53-year-old female with a recent tooth abscess, uterine carcinoma, history of GERD, presented with fever intractable nausea vomiting epigastric pain 10 days. Patient has been afebrile since admission however she reports fevers as high as 103 over the last 10 days thought it was related to her recent tooth abscess. Denies hematemesis hematochezia or melena. She was previously maintained on a PPI for GERD type symptoms but quit a year ago. No recent NSAIDs or alcohol. CT abdomen and pelvis reported severe diffuse gastritis no bowel obstruction. Moderate amount of free fluid in the pelvic cul-de-sac etiology uncertain. White count 12.1. Hemoglobin 14.2. LFTs amylase lipase within normal limits. BUN 10. Crit 0.7. Lactic acid venous 0.7. No history of this type of pain. No significant weight loss. Patient states she feels better tolerating a regular diet and requesting discharge. No recent EGD. Review of Systems Constitutional: Denies fever, chills, sweats, weight gain, or loss. HEENT: Negative for migraines, blurred vision or loss, earaches, drainage, tinnitus, oral mucosal lesions, dysphagia, or odynophagia. CARDIAC: Negative for chest pain, arrhythmias, or palpitation. RESPIRATORY: Negative for shortness of breath, hemoptysis, cough, or sputum production. GI: See HPI for pertinent findings. : Negative for hematuria, urgency, frequency, polyuria, or dysuria. GYNc: Denies possibility of . Negative vaginal discharge. MUSCULOSKELETAL: Negative for muscle aches, swelling, arthritis, and arthralgias. NEUROLOGIC: Negative for stroke or TIA. ENDOCRINE: Negative for thyroid problems. SKIN: Negative for rash or itching. PSYCHIATRIC: Negative history for depression and anxiety Past Medical History Past Medical History: Cancer, COPD, Thyroid Disorder Additional Past Medical History / Comment(s): uterine cancer sx History of Any Multi-Drug Resistant Organisms: None Reported Past Surgical History: Orthopedic Surgery Additional Past Surgical History / Comment(s): "pin put in finger on right hand" Past Psychological History: No Psychological Hx Reported Smoking Status: Former smoker Past Alcohol Use History: None Reported Past Drug Use History: None Reported - Past Family History Mother Family Medical History: COPD, Pneumonia Additional Family Medical History / Comment(s): of an aneurysm of the brain. Father Additional Family Medical History / Comment(s): of prostate and colon cancer. Brother(s) History Unknown: Yes Sister(s) Family Medical History: Thyroid Disorder Additional Family Medical History / Comment(s): sister from MRSA. other sister has lymphoma cancer Medications and Allergies Home Medications Medication Instructions Recorded Confirmed Type Levothyroxine Sodium [Synthroid] 75 mcg PO DAILY 11/18/18 11/18/18 History Allergies Allergy/AdvReac Type Severity Reaction Status Date / Time aspirin Allergy Anaphylaxis Verified 11/18/18 13:35 codeine Allergy Unknown Verified 11/18/18 13:35 morphine Allergy Unknown Verified 11/18/18 13:35 Physical Exam Vitals: Vital Signs Temp Pulse Pulse Resp BP BP Pulse Ox 11/19/18 08:37 62 105/58 11/19/18 05:51 98.0 F 57 L 18 94/60 95 11/18/18 21:00 98.4 F 68 18 113/71 97 11/18/18 17:11 98.2 F 56 L 18 121/76 100 11/18/18 17:10 98.2 F 78 18 116/78 98 11/18/18 15:37 99.0 F 68 16 100/66 97 Intake and Output 11/18/18 11/19/18 11/19/18 22:59 06:59 14:59 Intake Total 350 750 Balance 350 750 Intake: Oral 350 750 Other: Voiding Method Toilet Toilet Toilet # Voids 1 2 # Bowel Movements 1 Weight 43.137 kg General appearance: The patient is alert, oriented, in no acute distress. HET: Head is normocephalic and atraumatic. Pupils are equal and reactive. Oropharynx is clear without lesions. Neck: Supple without lymphadenopathy. Trachea midline. Heart: S1 S2. Regular rate and rhythm. Lungs: No crackles or wheezes are heard. Abdomen: Soft, nontender, nondistended with bowel sounds. No peritoneal signs. No palpable organomegaly or masses. Extremities: Normal skin color and turgor. No cyanosis, rash, ulceration, clubbing, or edema. Radial and pedal pulses are 2/4 bilaterally. Neurological: No focal deficits. Strength and sensation are grossly intact. Results CBC & Chem 7: 11/18/18 13:30 11/18/18 13:30 Labs: Abnormal Lab Results - Last 24 Hours (Table) 11/18/18 11/18/18 11/18/18 Range/Units 13:30 13:30 13:30 WBC 12.1 H (3.8-10.6) k/uL Neutrophils # 9.2 H (1.3-7.7) k/uL Sodium 135 L (137-145) mmol/L Urine Appearance Cloudy H (Clear) Urine Protein 1+ H (Negative) Urine Ketones 1+ H (Negative) Urine Blood Moderate H (Negative) Ur Leukocyte Esterase Trace H (Negative) Urine RBC 31 H (0-5) /hpf Urine WBC 13 H (0-5) /hpf Ur Squamous Epith Cells 14 H (0-4) /hpf Urine Bacteria Few H (None) /hpf Hyaline Casts 8 H (0-2) /lpf Urine Mucus Many H (None) /hpf Microbiology - Last 24 Hours (Table) 11/18/18 13:30 Urine Culture - Preliminary Urine,Voided CT scan - abdomen: report reviewed (Dr. Wing) Assessment and Plan (1) Epigastric pain Narrative/Plan: 53-year-old female with reported history of GERD in uterine carcinoma with recent tooth abscess presents with a ten-day history of intractable nausea vomiting epigastric pain and reported fever. CT reported diffuse gastritis moderate free fluid in the pelvic cul-de-sac of unclear etiology. Patient has been afebrile since admission with resolution of her symptoms tolerating a diet. Possible underlying self-limiting gastroenteritis possible exacerbation of GERD underlying peptic ulcer disease cannot be excluded. Current Visit: Yes Status: Acute Code(s): R10.13 - EPIGASTRIC PAIN SNOMED Code(s): 98363710 (2) Nausea & vomiting Current Visit: Yes Status: Acute Code(s): R11.2 - NAUSEA WITH VOMITING, UNSPECIFIED SNOMED Code(s): 03037478 Plan: 1. Inpatient EGD was offered however patient declined and would like to pursue as an outpatient. Considering patient's symptoms have resolved she is tolerating a diet agreeable with outpatient EGD , 11/27/[address] Wing. Protonix 40 mg daily prescription provided. 2. Recommend [employer] evaluation in regards to her history of uterine carcinoma and moderate free fluid seen in the pelvic cul-de-sac on CT. Thank you for this kind referral and the opportunity to participate in the care of your patient. This consultation was discussed with Dr. Wing. The impre ssion and plan of care have been directed as dictated.
[2018-11-19 14:06] VITALS: BP 102/59; PULSE 58; RESP 16; TEMP 98.2
[2018-11-19 14:37] LABS: Basophils # (A) 0.1 k/uL (0-0.2); Basophils % (A) 1 %; Eosinophils # (A) 0.2 k/uL (0-0.7); Eosinophils % (A) 2 %; HCT 36.9 % (34.0-46.0); HGB 12.5 gm/dL (11.4-16.0); Lymphocytes % (A) 23 %; MCHC 33.7 g/dL (31.0-37.0); Mean Platelet Volume 6.7; Monocytes # (A) 0.3 k/uL (0-1.0); Monocytes % (A) 4 %; Neutrophils # (A) 5.8 k/uL (1.3-7.7); Neutrophils % (A) 69 %; Platelet Count 348 k/uL (150-450); RBC 4.15 m/uL (3.80-5.40); WBC 8.5 k/uL (3.8-10.6)
[2018-11-19 14:41] LABS: Anion Gap 8 mmol/L; Blood Urea Nitrogen 8 mg/dL (7-17); Calcium 8.5 mg/dL (8.4-10.2); Carbon Dioxide 23 mmol/L (22-30); Chloride 106 mmol/L (98-107); Glucose 138 mg/dL (74-99); Potassium 3.6 mmol/L (3.5-5.1); Sodium 137 mmol/L (137-145)
--- NOTE | 2018-11-19 14:41 | HP ---
HISTORY AND PHYSICAL SUBJECTIVE: This is a 53-year-old female with history of uterine carcinoma, history of GERD, sepsis, presented with fever, nausea, vomiting and epigastric pain for 10 days. Fever as high as 103. She thought it was related to her tooth abscess. She did not develop any melena, hematochezia, or hematemesis. She is on PPI for GERD, but she quit a year ago. CT shows severe diffuse gastritis, moderate, free fluid in the cul-de-sac. Her labs reviewed. She is admitted for abdominal pain, fevers. 14 POINT REVIEW OF SYSTEMS: Negative except for as mentioned in HPI. PAST MEDICAL HISTORY: COPD, cancer, thyroid disorder. SOCIAL HISTORY: Former smoker. No alcohol. No drugs. FAMILY HISTORY: Mother has COPD, pneumonia. Father, prostate, colon cancer. Brother, sister, hypothyroidism. ALLERGIES: ASPIRIN, CODEINE, MORPHINE. Temp 98, pulse 60s to 70s, respiratory rate 16 to 18, blood pressure 100 to 162/60s to 70s. HEENT: No lesions, possible some periodontal disease. HEART: S1, S2. LUNGS: Clear. ABDOMEN: Soft. Mild epigastric tenderness. EXTREMITIES: Normal. SKIN: Turgor. NEUROLOGIC: Cranial nerves are intact. LABS: Reviewed. ASSESSMENT: Epigastric pain and lot of fluid in the cul-de-sac. Possible intractable nausea, vomiting due to severe gastritis seen on a CAT scan. Proton pump inhibitors will be given. GI consult. Fluid in the cul-de-sac, Gynecology consult will be done. Advanced diet. She will need a CANE PACKER to see her. Possible discharge home after cleared by GI and CANE PACKER. MMODL / ANÍBALN: [id number] /
[2018-11-20] MEDS ORDERED: LEVOTHYROXINE 75 MCG TAB PO SCH (06:30)
== END 2018-11-19 15:13 | disposition home or self-care (01) ==
LOC: EC 11:37 → 4MS4W 15:06
PROVIDERS: ADMIT Family Medicine; ATTEND Family Medicine
DX: K29.70 Gastritis, unspecified, without bleeding (principal); E86.0 Dehydration; K21.9 Gastro-esophageal reflux disease without esophagitis; K04.7 Periapical abscess without sinus; R18.8 Other ascites; J44.9 Chronic obstructive pulmonary disease, unspecified; E07.9 Disorder of thyroid, unspecified; Z87.891 Personal history of nicotine dependence; Z85.42 Personal history of malignant neoplasm of other parts of uterus; Z79.890 Hormone replacement therapy; Z88.6 Allergy status to analgesic agent; Z88.5 Allergy status to narcotic agent; Z86.19 Personal history of other infectious and parasitic diseases; Z90.710 Acquired absence of both cervix and uterus; Z82.5 Family history of asthma and other chronic lower respiratory diseases; Z80.0 Family history of malignant neoplasm of digestive organs; Z80.42 Family history of malignant neoplasm of prostate; Z82.49 Family history of ischemic heart disease and other diseases of the circulatory system; Z83.1 Family history of other infectious and parasitic diseases; Z80.7 Family history of other malignant neoplasms of lymphoid, hematopoietic and related tissues; Z83.49 Family history of other endocrine, nutritional and metabolic diseases
CPT/HCPCS: 96376 ×2; 96361 ×2; 96374; 99285; 36415; 80053; 80048; 82150; 83605; 83690; 85025 ×2; 85610; 85730; 81001; 87086; 87502; 74018; 74177; G0378 ×2; C9113 ×2; Q9967

== ENCOUNTER 2018-11-27 11:42 | Day surgery (SDC) | payer OTHER ==
[2018-11-26 11:47] VITALS: BMI 34.0
[~2018-11-27 11:42] MED LIST: LACTATED RINGERS 1,000 ML IV SCH; LIDOCAINE 1% 20 ML VIAL (10MG/ML) FOR IV START INTRADERMA PRN
[2018-11-27 12:27] VITALS: RESP 16; TEMP 99
[2018-11-27] MEDS ORDERED: LIDOCAINE 1% INJ 10MG/ML (20 ML MDV) ONE (12:58)
[2018-11-27] MEDS ORDERED: PROPOFOL 10 MG/ML 20 ML VIAL IV ONE (12:58)
[2018-11-27] MEDS ORDERED: GLYCOPYRROLATE 0.2 MG/ML 2 ML VIAL ONE (12:58)
--- NOTE | 2018-11-27 13:32 | P.PCN ---
Date of Procedure: 11/27/18 Description of Procedure: BRIEF HISTORY: Patient is a 53-year-old, pleasant, female patient who presents for upper endoscopy for evaluation of epigastric pain. The patient reports that she previously had episodes of nausea and epigastric pain in 2011 investigate with EGD acute fall that she had a tear that was repaired. Currently the patient reports epigastric pain of unknown etiology. She was started on Protonix 40 mg daily and is having EGD for further evaluation. PROCEDURE PERFORMED: Esophagogastroduodenoscopy with biopsy. PREOPERATIVE DIAGNOSIS: Epigastric abdominal pain. ESTIMATED BLOOD LOSS: Minimal. IV sedation per anesthesia. PROCEDURE: After informed consent was obtained, the patient was brought into the endoscopy unit. IV sedation was administered by Anesthesia under continuous monitoring. Initially the Olympus GIF-190 video endoscope was inserted into the mouth. Esophagus intubated without any difficulty. It was gradually advanced into the stomach and duodenum and carefully examined. The bulb and the second part of the duodenum appeared normal, with biopsies taken. The scope at this time was withdrawn to the stomach, adequately insufflated with air, and upon careful examination, mucosa of the antrum, body, cardia and the fundus were significant for diffuse erythema and granularity suggestive of mild gastritis with biopsies of the antrum and body taken. In addition in the stomach along the lesser curvature a large cratered nonbleeding ulcer was found without any high risk stigmata for bleeding, biopsies of the ulcer were taken. The scope was then withdrawn into the esophagus. The GE junction was located at 43 cm from the incisors. The esophagus appeared normal. There were no erosions or ulcerations seen and the patient tolerated the procedure well. IMPRESSION: 1. Large cratered nonbleeding gastric ulcer without high-risk stigmata for bl eeding, biopsied. 2. Mild gastritis, antrum and body biopsied. 3. Duodenal biopsies. RECOMMENDATIONS: The findings of this examination were discussed with the patient and her family. Okay to resume diet. Will provide patient with a prescription to increase Protonix to 40 mg twice daily. Patient should follow-up with gastroenterology in one month with plan for repeat EGD in 10 weeks given the large size of the ulcer to check for healing. Await pathology from biopsies. Avoid all NSAID therapy.
[2018-11-27 14:12] VITALS: BP 113/78; PULSE 79
== END 2018-11-27 14:27 | disposition home or self-care (01) ==
LOC: ORWHC2ENDO 11:42
PROVIDERS: ATTEND Internal Medicine
DX: K29.50 Unspecified chronic gastritis without bleeding (principal); B96.81 Helicobacter pylori [H. pylori] as the cause of diseases classified elsewhere; K25.9 Gastric ulcer, unspecified as acute or chronic, without hemorrhage or perforation; K21.9 Gastro-esophageal reflux disease without esophagitis; E07.9 Disorder of thyroid, unspecified; Z87.891 Personal history of nicotine dependence; Z97.2 Presence of dental prosthetic device (complete) (partial); Z79.890 Hormone replacement therapy; Z79.899 Other long term (current) drug therapy; Z88.6 Allergy status to analgesic agent; Z88.5 Allergy status to narcotic agent
CPT/HCPCS: 88305; 88342; 43239; J2001; J2704

== ENCOUNTER → 2020-02-26 | Outpatient (CLI) | payer MEDICARE ==
[~2020-02-26] MED LIST changes: -LACTATED RINGERS 1,000 ML IV SCH; -LIDOCAINE 1% 20 ML VIAL (10MG/ML) FOR IV START INTRADERMA PRN; +REGADENOSON 0.4 MG/5 ML SYRINGE IV ONE
--- NOTE | 2020-02-26 11:48 | P.STRESS ---
- Stress Test Note Stress Test Results/Findings: Exam Performed: NM stress lexiscan cardiolite Exam Date: 02/26/20 Reason for Exam: ABNORMAL EKG Height: 5 ft 4 in Weight: 103 kg Protocol: LEXISCAN Stage: NA Duration of Exercise: NA Resting Heart Rate: 50 Resting Blood Pressure: 100/52 Maximum Achieved Heart Rate: 76 Maximum Achieved Blood Pressure: 108/63 85% PMHR: NA 100% PMHR: NA METS: NA Technologist Comment: Stress Test Results/Findings: At baseline EKG showed sinus bradycardia with a heart rate of 50 bpm, normal a xis, nonspecific T-wave inversions in V1 and V2. Patient recieved IV infusion of Lexiscan 0.4mg and at peak infusion EKG showed no significant change from baseline Conclusions: 1. Normal EKG response to Lexiscan infusion 2. Nuclear imaging to be reported separately.
--- NOTE | 2020-02-26 12:46 | NM ---
EXAMINATION TYPE: NM stress lexiscan cardiolite DATE OF EXAM: 02/26/2020 COMPARISON: NONE HISTORY: Abnormal EKG TECHNIQUE: After the intravenous administration of 9.14 mCi Tc 99m Sestamibi - Cardiolite resting SP ECT images acquired 60 minutes post injection. The patient received 0.4mg Lexiscan, 24.7 mCi Tc 99m Sestamibi - Stress images obtained [address] injection FINDINGS: Review of stress and rest SPECT images demonstrates no distinct perfusion abnormality. Gated analysi s shows normal wall motion with an estimated left ventricular ejection fraction of 73 %. IMPRESSION: No pharmacologically induced scintigraphic evidence for reversible ischemia. Consider echocardiograph ic correlation for elevated ejection fraction.
--- NOTE | 2020-02-26 15:24 | EST ---
Stress Test Results/Findings: Exam Performed: NM stress lexiscan cardiolite Exam Date: 02/26/20 Reason for Exam: ABNORMAL EKG Height: 5 ft 4 in Weight: 103 kg Protocol: LEXISCAN Stage: NA Duration of Exercise: NA Resting Heart Rate: 50 Resting Blood Pressure: 100/52 Maximum Achieved Heart Rate: 76 Maximum Achieved Blood Pressure: 108/63 85% PMHR: NA 100% PMHR: NA METS: NA Technologist Comment: Stress Test Results/Findings: At baseline EKG showed sinus bradycardia with a heart rate of 50 bpm, normal axis, nonspecific T-wave inversions in V1 and V2. Patient recieved IV infusion of Lexiscan 0.4mg and at peak infusion EKG showed no significant change from baseline Conclusions: 1. Normal EKG response to Lexiscan infusion 2. Nuclear imaging to be reported separately. MTDD
== END | disposition home or self-care (01) ==
LOC: RADNMMAIN 08:56
PROVIDERS: ATTEND Family Medicine
DX: R94.31 Abnormal electrocardiogram [ECG] [EKG] (principal)
CPT/HCPCS: 93017; 78452; A9500; J2785

== ENCOUNTER → 2021-07-18 | Outpatient (CLI) | payer MEDICARE ==
--- NOTE | 2021-07-19 09:51 | P.ARTDOP ---
Arterial Doppler LOWER EXTREMITY ARTERIAL DOPPLER: DATE OF SERVICE: 07/18/2021 Reason for study: Right leg pain. Doppler waveforms: Multiphasic bilaterally throughout. Waveforms on digits of the left a bit blunted. Pulse volume recording: []. Pressure gradients: None. Ankle-brachial indices: Greater than 1 bilaterally. Toe brachial indices: 0.62 on the right, 0.55 on the left Impression: Normal study. Suspect that blunted waveforms on the left and slight decrease in toe pressures are related to a vasospastic phenomenon rather than vascular disease. Does not clinically correlate with symptoms..
== END | disposition home or self-care (01) ==
LOC: RADUSWWP 10:30
PROVIDERS: ATTEND Family Medicine
DX: M79.604 Pain in right leg (principal); I89.0 Lymphedema, not elsewhere classified
CPT/HCPCS: 93922

== ENCOUNTER 2021-08-17 15:13 | Inpatient (IN) | payer MEDICARE ==
[2021-08-17] MEDS ORDERED: methylPREDNISolone SOD SUCCI 125 MG/2 ML VIAL IV STA (15:51)
[2021-08-17] MEDS ORDERED: ALBUTEROL HFA INHALER INHALATION STA (15:51)
--- NOTE | 2021-08-17 15:54 | ED ---
General Adult HPI - General Chief complaint: Shortness of Breath Stated complaint: KANU Time Seen by Provider: 08/17/21 15:43 Source: patient, family, RN notes reviewed Mode of arrival: wheelchair Limitations: no limitations - History of Present Illness Initial comments: Patient is a pleasant 55 year old female presenting to the emergency Department with difficulty in breathing. Onset of symptoms was over the past several days, progressively worsening. Patient does have history of COPD however this feels worse than normal. No fevers at home. Patient did have recent evaluation and had scan concerning for metastatic cancer throughout her body. This is in her lungs which may or may not be the primary. Patient has not seen oncology or started any treatment for this yet. Minimal cough. No leg pain or leg swelling. - Related Data Home Medications Medication Instructions Recorded Confirmed Levothyroxine Sodium [Synthroid] 75 mcg PO DAILY 11/18/18 08/17/21 Albuterol Inhaler [Ventolin Hfa 2 puff INHALATION RT-QID PRN 08/17/21 08/17/21 Inhaler] Umeclidinium Brm/Vilanterol Tr 1 puff INHALATION RT-DAILY 08/17/21 08/17/21 [Anoro Ellipta 62.5-25 Mcg INH] Allergies Allergy/AdvReac Type Severity Reaction Status Date / Time aspirin Allergy Anaphylaxis Verified 08/17/21 18:39 codeine Allergy Anaphylaxis Verified 08/17/21 18:39 morphine Allergy Anaphylaxis Verified 08/17/21 18:39 Review of Systems ROS Statement: Those systems with pertinent positive or pertinent negative responses have been documented in the HPI. ROS Other: All systems not noted in ROS Statement are negative. Constitutional: Denies: fever Eyes: Denies: eye pain ENT: Denies: ear pain Respiratory: Reports: as per HPI, dyspnea Cardiovascular: Denies: chest pain Endocrine: Reports: fatigue Gastrointestinal: Denies: abdominal pain Genitourinary: Denies: dysuria Musculoskeletal: Denies: back pain Skin: Denies: rash Neurological: Denies: weakness Past Medical History Past Medical History: Cancer, COPD, Thyroid Disorder Additional Past Medical History / Comment(s): uterine cancer sx History of Any Multi-Drug Resistant Organisms: None Reported Past Surgical History: Hysterectomy, Orthopedic Surgery Additional Past Surgical History / Comment(s): "pin put in finger on right hand". EGD WITH REPAIR OF "RIP " IN STOMACH Past Anesthesia/Blood Transfusion Reactions: No Reported Reaction Past Psychological History: No Psychological Hx Reported Past Alcohol Use History: None Reported Past Drug Use History: None Reported - Past Family History Mother Family Medical History: COPD, Pneumonia Additional Family Medical History / Comment(s): of an aneurysm of the brain. Father Additional Family Medical History / Comment(s): of prostate and colon cancer. Brother(s) History Unknown: Yes Sister(s) Family Medical History: Thyroid Disorder Additional Family Medical History / Comment(s): sister from MRSA. other sister has lymphoma cancer General Exam Limitations: no limitations General appearance: alert Head exam: Present: normocephalic Eye exam: Present: normal appearance ENT exam: Present: normal oropharynx Neck exam: Present: normal inspection Respiratory exam: Present: respiratory distress, decreased breath sounds Cardiovascular Exam: Present: regular rate, normal rhythm GI/Abdominal exam: Present: soft. Absent: tenderness Extremities exam: Present: normal inspection. Absent: pedal edema, calf tendern ess Neurological exam: Present: alert Psychiatric exam: Present: normal affect, normal mood Skin exam: Present: normal color Course Vital Signs 08/17/21 08/17/21 15:29 15:47 Temperature 99.2 F Pulse Rate 102 H Respiratory 18 16 Rate Blood Pressure 133/87 O2 Sat by Pulse 93 L Oximetry - Reevaluation(s) Reevaluation #1: 08/17/21 19:36 Patient does meet sepsis criteria diagnosed at 1930. Blood culture and lactic acid and IV antibiotics will be ordered. EKG Findings - EKG Comments: EKG Findings:: Sinus rhythm rate 87. AZ 167. QRS 106. QT 359. QTC 44. Normal axis. Incomplete right bundle-branch block. No acute ST change. Medical Decision Making - Medical Decision Making Patient was reevaluated and updated. Case was discussed with Dr. Reilly who will admit his patient and agrees with consults for pulmonary and oncology. - Lab Data Result diagrams: 08/17/21 16:32 08/17/21 16:32 Lab Results 08/17/21 08/17/21 08/17/21 Range/Units 16:00 16:32 16:32 WBC 13.5 H (3.8-10.6) k/uL RBC 4.59 (3.80-5.40) m/uL Hgb 14.0 (11.4-16.0) gm/dL Hct 41.3 (34.0-46.0) % MCV 90.0 (80.0-100.0) fL MCH 30.5 (25.0-35.0) pg MCHC 33.9 (31.0-37.0) g/dL RDW 13.5 (11.5-15.5) % Plt Count 436 (150-450) k/uL MPV 6.5 Neutrophils % 85 % Lymphocytes % 8 % Monocytes % 5 % Eosinophils % 1 % Basophils % 0 % Neutrophils # 11.5 H (1.3-7.7) k/uL Lymphocytes # 1.0 (1.0-4.8) k/uL Monocytes # 0.7 (0-1.0) k/uL Eosinophils # 0.1 (0-0.7) k/uL Basophils # 0.1 (0-0.2) k/uL PT 10.6 (9.0-12.0) sec INR 1.0 (<1.2) APTT 21.2 L (22.0-30.0) sec D-Dimer 3.96 H (<0.60) mg/L FEU Sodium (137-145) mmol/L Potassium (3.5-5.1) mmol/L Chloride (98-107) mmol/L Carbon Dioxide (22-30) mmol/L Anion Gap mmol/L BUN (7-17) mg/dL Creatinine (0.52-1.04) mg/dL Est GFR (CKD-EPI)AfAm (>60 ml/min/1.73 sqM) Est GFR (CKD-EPI)NonAf (>60 ml/min/1.73 sqM) Glucose (74-99) mg/dL Plasma Lactic Acid Mane (0.7-2.0) mmol/L Calcium (8.4-10.2) mg/dL Total Bilirubin (0.2-1.3) mg/dL AST (14-36) U/L ALT (4-34) U/L Alkaline Phosphatase (38-126) U/L Troponin I (0.000-0.034) ng/mL NT-Pro-B Natriuret Pep pg/mL Total Protein (6.3-8.2) g/dL Albumin (3.5-5.0) g/dL Coronavirus (PCR) Not Detected (Not Detectd) Influenza Type A RNA (Not Detectd) Influenza Type B (PCR) (Not Detectd) 08/17/21 08/17/21 08/17/21 Range/Units 16:32 16:32 16:32 WBC (3.8-10.6) k/uL RBC (3.80-5.40) m/uL Hgb (11.4-16.0) gm/dL Hct (34.0-46.0) % MCV (80.0-100.0) fL MCH (25.0-35.0) pg MCHC (31.0-37.0) g/dL RDW (11.5-15.5) % Plt Count (150-450) k/uL MPV Neutrophils % % Lymphocytes % % Monocytes % % Eosinophils % % Basophils % % Neutrophils # (1.3-7.7) k/uL Lymphocytes # (1.0-4.8) k/uL Monocytes # (0-1.0) k/uL Eosinophils # (0-0.7) k/uL Basophils # (0-0.2) k/uL PT (9.0-12.0) sec INR (<1.2) APTT (22.0-30.0) sec D-Dimer (<0.60) mg/L FEU Sodium 129 L (137-145) mmol/L Potassium 4.8 (3.5-5.1) mmol/L Chloride 98 (98-107) mmol/L Carbon Dioxide 25 (22-30) mmol/L Anion Gap 6 mmol/L BUN 16 (7-17) mg/dL Creatinine 0.83 (0.52-1.04) mg/dL Est GFR (CKD-EPI)AfAm >90 (>60 ml/min/1.73 sqM) Est GFR (CKD-EPI)NonAf 80 (>60 ml/min/1.73 sqM) Glucose 96 (74-99) mg/dL Plasma Lactic Acid Mane 1.1 (0.7-2.0) mmol/L Calcium 9.2 (8.4-10.2) mg/dL Total Bilirubin 0.4 (0.2-1.3) mg/dL AST 29 (14-36) U/L ALT 21 (4-34) U/L Alkaline Phosphatase 92 (38-126) U/L Troponin I <0.012 (0.000-0.034) ng/mL NT-Pro-B Natriuret Pep pg/mL Total Protein 6.7 (6.3-8.2) g/dL Albumin 3.6 (3.5-5.0) g/dL Coronavirus (PCR) (Not Detectd) Influenza Type A RNA (Not Detectd) Influenza Type B (PCR) (Not Detectd) 08/17/21 08/17/21 Range/Units 16:32 17:11 WBC (3.8-10.6) k/uL RBC (3.80-5.40) m/uL Hgb (11.4-16.0) gm/dL Hct (34.0-46.0) % MCV (80.0-100.0) fL MCH (25.0-35.0) pg MCHC (31.0-37.0) g/dL RDW (11.5-15.5) % Plt Count (150-450) k/uL MPV Neutrophils % % Lymphocytes % % Monocytes % % Eosinophils % % Basophils % % Neutrophils # (1.3-7.7) k/uL Lymphocytes # (1.0-4.8) k/uL Monocytes # (0-1.0) k/uL Eosinophils # (0-0.7) k/uL Basophils # (0-0.2) k/uL PT (9.0-12.0) sec INR (<1.2) APTT (22.0-30.0) sec D-Dimer (<0.60) mg/L FEU Sodium (137-145) mmol/L Potassium (3.5-5.1) mmol/L Chloride (98-107) mmol/L Carbon Dioxide (22-30) mmol/L Anion Gap mmol/L BUN (7-17) mg/dL Creatinine (0.52-1.04) mg/dL Est GFR (CKD-EPI)AfAm (>60 ml/min/1.73 sqM) Est GFR (CKD-EPI)NonAf (>60 ml/min/1.73 sqM) Glucose (74-99) mg/dL Plasma Lactic Acid Mane (0.7-2.0) mmol/L Calcium (8.4-10.2) mg/dL Total Bilirubin (0.2-1.3) mg/dL AST (14-36) U/L ALT (4-34) U/L Alkaline Phosphatase (38-126) U/L Troponin I (0.000-0.034) ng/mL NT-Pro-B Natriuret Pep 235 pg/mL Total Protein (6.3-8.2) g/dL Albumin (3.5-5.0) g/dL Coronavirus (PCR) (Not Detectd) Influenza Type A RNA Not Detected (Not Detectd) Influenza Type B (PCR) Not Detected (Not Detectd) - Radiology Data Radiology results: report reviewed (Computed tomography scan of the chest shows left-sided infiltrate with effusion. Liver lesions), image reviewed Critical Care Time Critical Care Time: Yes Total Critical Care Time: 32 Disposition Clinical Impression: Pneumonia, Sepsis Disposition: ADMITTED IP TO THIS [facility] Condition: Serious Is patient prescribed a controlled substance at d/c from ED?: No Referrals: Patrick Reilly MD [Primary Care Provider] - 1-2 days Decision Time: 19:36
[2021-08-17] MEDS ORDERED: ACETAMINOPHEN TAB 325 MG TAB PO STA (16:35)
[2021-08-17 16:57] LABS: ALT 21 U/L (4-34); AST 29 U/L (14-36); African American GFR (CKD) >90 (>60 ml/min/1.73 sqM); Albumin 3.6 g/dL (3.5-5.0); Alkaline Phosphatase 92 U/L (38-126); Anion Gap 6 mmol/L; Blood Urea Nitrogen 16 mg/dL (7-17); Calcium 9.2 mg/dL (8.4-10.2); Carbon Dioxide 25 mmol/L (22-30); Chloride 98 mmol/L (98-107); Glucose 96 mg/dL (74-99); Non-African American GFR(CKD) 80 (>60 ml/min/1.73 sqM); Potassium 4.8 mmol/L (3.5-5.1); Sodium 129 mmol/L (137-145); Total Bilirubin 0.4 mg/dL (0.2-1.3); Total Protein 6.7 g/dL (6.3-8.2)
[2021-08-17 17:03] LABS: Basophils # (A) 0.1 k/uL (0-0.2); Basophils % (A) 0 %; Eosinophils # (A) 0.1 k/uL (0-0.7); Eosinophils % (A) 1 %; HCT 41.3 % (34.0-46.0); Lymphocytes % (A) 8 %; MCH 30.5 pg (25.0-35.0); MCHC 33.9 g/dL (31.0-37.0); Mean Platelet Volume 6.5; Monocytes # (A) 0.7 k/uL (0-1.0); Monocytes % (A) 5 %; Neutrophils # (A) 11.5 k/uL (1.3-7.7); Neutrophils % (A) 85 %; Platelet Count 436 k/uL (150-450); RBC 4.59 m/uL (3.80-5.40); RDW 13.5 % (11.5-15.5); WBC 13.5 k/uL (3.8-10.6)
--- NOTE | 2021-08-17 17:09 | XR ---
EXAMINATION: XR chest 2V DATE AND TIME: 08/17/2021 4:52 PM CLINICAL INDICATION: History uterine carcinoma and COPD; difficulty breathing TECHNIQUE: AP and lateral COMPARISON: 03/22/2017 FINDINGS: Lungs and pleural spaces: There is prominent lateral formation involving the upper half of the right lung. There is ill-defined added opacity producing moderate silhouetting of the pulmonary vasculature throughout the lower half of the right lung parenchyma and upper half of the left lung parenchyma. T he lower half of the left lung parenchyma shows passive atelectasis from a large left pleural effusio n. The cardiac silhouette appears borderline enlarged. The skeletal structures and soft tissues are negative for acute findings. IMPRESSION: 1. Large left pleural effusion with associated passive atelectasis of the mid and lower left lung. 2. Prominent bilateral pulmonary infiltrates.
[2021-08-17 17:14] LABS: Partial Thromboplastin Time 21.2 sec (22.0-30.0); Prothrombin Time 10.6 sec (9.0-12.0)
[2021-08-17] MEDS ORDERED: MORPHINE SULFATE 4 MG/ML SYRINGE IVP STA (18:59)
--- NOTE | 2021-08-17 19:11 | CT ---
EXAMINATION TYPE: CT angio chest w contrast and with 3-D reconstruction renderings DATE OF EXAM: 08/17/2021 5:58 PM COMPARISON: Chest radiograph 08/17/2021; CT 11/18/2018 HISTORY: Dyspnea. CT DLP: 179.8 mGycm Automated exposure control for dose reduction was used. CONTRAST: CTA scan of the thorax is performed with IV Contrast, patient injected with 62ml mL of Isov ue 370, pulmonary embolism protocol. FINDINGS: LUNGS AND PLEURAL SPACES: There is prominent bleb and bullae formation involving the upper half of th e right lung. The right pleural space is negative. There is extensive ill-defined consolidative lung changes involving the upper half of the left lung, consistent with multifocal bronchopneumonia. The lower half of the left lung shows passive atelectasi s from the large left pleural effusion. MEDIASTINUM: There is satisfactory enhancement of the pulmonary artery and its branches, with no CT e vidence for pulmonary embolism. There are no acute aortic findings. No cardiomegaly or pericardial e ffusion. VISUALIZED UPPER ABDOMEN: There are 2 space occupying liver lesions, one within the left hepatic lob e measuring approximately 5 cm mean diameter and the other within the posterior segment right hepatic lobe measuring approximately 4 cm mean diameter. These lesions are compatible with malignant etiolog y until proven otherwise. IMPRESSION: CHEST: NEGATIVE FOR PULMONARY EMBOLISM. POSITIVE FOR LEFT-SIDED PNEUMONIA AND LARGE LEFT PLEURAL EFFU SCOOBY. ABDOMEN: 2 NEW LARGE AGGRESSIVE LIVER LESIONS DISCUSSED, FOLLOW-UP NEEDED.
[2021-08-17] MEDS ORDERED: PNEUMONIA PROTOCOL UTILIZED 1 EACH MISC PO PRN (19:37)
[2021-08-17] MEDS ORDERED: IPRATROPIUM-ALBUTEROL 3 ML NEB INHALATION PRN (19:37)
[2021-08-17] MEDS ORDERED: AZITHROMYCIN 500 MG in SODIUM CHLORIDE 0.9% 250 ML IVPB STA (19:38)
[2021-08-17] MEDS: IPRATROPIUM-ALBUTEROL 3 ML NEB INHALATION SCH (20:03)
[2021-08-17] MEDS: SODIUM CHLORIDE 0.9% 1,000 ML IV SCH (20:05)
[2021-08-18] MEDS: methylPREDNISolone SOD SUCCI 40 MG/ML 1 ML VIAL IV SCH ×3 (00:53→17:47)
--- NOTE | 2021-08-18 04:44 | HP ---
HISTORY AND PHYSICAL HISTORY OF PRESENT ILLNESS: 55-year-old white female with increased shortness of breath, cough, congestion over the last 3 days, worsening. She has a history of recent adenocarcinoma found on a biopsy of the liver and abnormal PET scan with adenocarcinoma throughout the chest and abdomen. She has came in with left-sided pneumonia with large pleural effusion. Pulmonary is being consulted as well as Hematology/Oncology, possibly some chemo to start as she has not met them yet or started chemo. CT scan shows large pleural perfusion for which treatment will be done. SOCIAL HISTORY: Ex smoker for many years. . She has a kid. 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 FAMILY HISTORY: Reviewed. See old chart. MEDICATIONS: See old chart. PHYSICAL EXAM: She is 95% on 2 L. Blood pressure 120s over 70s, temp 97.8, respiratory 16 to 18, pulse is 80s to 90s. CARDIOVASCULAR: S1, S2. LUNGS: Decreased breath sounds on the left side of the lung. HEMATOLOGIC: Negative Homans. PSYCH: Fair mood and affect. ASSESSMENT: 1. Acute hypoxemic respiratory failure. 2. Left-sided chest pain secondary to large pleural perfusion. 3. Left upper lobe pneumonia. 4. She has a history of adenocarcinoma and newly diagnosed of the lung without any treatment so far with the abnormal PET scan. Wait for radiation and chemotherapy with Dr. Goff's recommendations. Continue to treat pneumonia. Possible tap of the lung due to large pleural effusion. MMODL / IJN: [id number] /
[2021-08-18] MEDS ORDERED: LEVOTHYROXINE 75 MCG TAB PO SCH (06:30)
[2021-08-18] MEDS: SODIUM CHLORIDE 0.9% 1,000 ML IV SCH ×2 (07:00→17:22)
[2021-08-18] MEDS: SYNTHROID 75 MCG PO SCH (07:00)
--- NOTE | 2021-08-18 08:11 | US ---
EXAMINATION TYPE: US chest DATE OF EXAM: 08/18/2021 COMPARISON: Chest CT 08/17/2021 CLINICAL HISTORY: left pleural effusion. TECHNIQUE: Targeted ultrasound of the posterior lower left EXAM MEASUREMENTS: Left Pleural Effusion pocket size: 9.2 cm Left skin surface to fluid distance: 2.1 cm Left side marked for possible thoracentesis outside the dept. Pulmonologists are able to review the images in the patient?s EMR. Limited ultrasound performed at the posterior left chest. Low-level echoes are suspected within the l eft effusion possibly representing debris or blood IMPRESSIONS: Large left pleural effusion
[2021-08-18] MEDS: IPRATROPIUM-ALBUTEROL 3 ML NEB INHALATION SCH ×4 (08:18→20:09)
--- NOTE | 2021-08-18 08:19 | XR ---
EXAMINATION TYPE: XR chest 2V DATE OF EXAM: 08/18/2021 COMPARISON: Chest x-ray 08/17/[address] 08/17/2021 HISTORY: Pneumonia, pleural effusion TECHNIQUE: Frontal and lateral views of the chest are obtained. FINDINGS: Extensive emphysematous changes are present within the lungs, sizable left pleural effusio n is again noted. No evident pneumothorax. Heart is small. There is a spinal curvature. Apical densit y left greater than right is again seen. IMPRESSION: Similar findings. Large left pleural effusion and associated atelectasis versus pneumoni a, difficult to exclude underlying mass. Extensive emphysema.
[2021-08-18] MEDS ORDERED: ALPRAZolam 0.5 MG TAB PO STA (08:33)
[2021-08-18] MEDS ORDERED: ALPRAZolam 0.5 MG TAB PO PRN (08:33)
[2021-08-18] MEDS: AZITHROMYCIN 500 MG TAB PO SCH (09:04)
--- NOTE | 2021-08-18 12:27 | P.CNPUL ---
History of Present Illness Consult date: 08/18/21 Reason for consult: dyspnea, cough, COPD, hypoxemia, pneumonia, abnormal CXR/CT Chief complaint: Shortness of breath History of present illness: Patient is a 55-year-old female seen eval reexamined on fourth floor patient presented into the hospital with several day history of increasing shortness of breath breathing difficulty intermittent cough patient has end-stage lung disease due to severe COPD, this patient has been recently diagnosed on the basis of her scans to have metastatic cancer primary however is unknown, patient has not been evaluated by oncology, she used to smoke. Irregularly half to 1 pack per day till 2018 and then she is smoking currently she is short of breath with inability to say 3-4 word sentences, her chest x-ray revealed left-sided pleural effusion of moderate size ultrasound of the chest confirmed the effusion of moderate to large size, significant labs include leukocytosis with WBC 13,500, sodium of 129, computed tomography scan of the chest left basal infiltrate along with left-sided pleural effusion and liver lesions no PE seen him a currently patient is being seen with the visit to myself Rocephin and Solu-Medrol along with bronchodilators and continuation of home medications including Synthroid Review of Systems All systems: negative Past Medical History Past Medical History: Cancer, COPD, Thyroid Disorder Additional Past Medical History / Comment(s): uterine cancer sx History of Any Multi-Drug Resistant Organisms: None Reported Past Surgical History: Hysterectomy, Orthopedic Surgery Additional Past Surgical History / Comment(s): "pin put in finger on right hand". EGD WITH REPAIR OF "RIP " IN STOMACH Past Anesthesia/Blood Transfusion Reactions: No Reported Reaction Past Psychological History: No Psychological Hx Reported Smoking Status: Former smoker Past Alcohol Use History: None Reported Additional Past Alcohol Use History / Comment(s): QUIT SMOKING -2018 Past Drug Use History: None Reported - Past Family History Mother Family Medical History: COPD, Pneumonia Additional Family Medical History / Comment(s): of an aneurysm of the brai n. Father Additional Family Medical History / Comment(s): of prostate and colon cancer. Brother(s) History Unknown: Yes Sister(s) Family Medical History: Thyroid Disorder Additional Family Medical History / Comment(s): sister from MRSA. other sister has lymphoma cancer Medications and Allergies Home Medications Medication Instructions Recorded Confirmed Type Levothyroxine Sodium [Synthroid] 75 mcg PO DAILY 11/18/18 08/17/21 History Albuterol Inhaler [Ventolin Hfa 2 puff INHALATION RT-QID PRN 08/17/21 08/17/21 History Inhaler] Umeclidinium Brm/Vilanterol Tr 1 puff INHALATION RT-DAILY 08/17/21 08/17/21 History [Anoro Ellipta 62.5-25 Mcg INH] Allergies Allergy/AdvReac Type Severity Reaction Status Date / Time aspirin Allergy Anaphylaxis Verified 08/17/21 18:39 codeine Allergy Anaphylaxis Verified 08/17/21 18:39 morphine Allergy Anaphylaxis Verified 08/17/21 18:39 Physical Exam Vitals: Vital Signs Temp Pulse Pulse Resp BP BP Pulse Ox 08/18/21 12:10 88 18 08/18/21 08:28 88 18 08/18/21 08:18 87 18 97 08/18/21 08:00 18 08/18/21 07:44 97.7 F 73 16 114/70 92 L 08/18/21 01:10 98.4 F 72 14 110/62 92 L 08/17/21 21:30 97.8 F 90 17 127/78 95 08/17/21 21:02 97.7 F 08/17/21 20:54 88 08/17/21 20:49 85 08/17/21 19:46 85 18 125/75 98 08/17/21 15:47 16 08/17/21 15:29 99.2 F 102 H 18 133/87 93 L Intake and Output 08/17/21 08/18/21 08/18/21 22:59 06:59 14:59 Intake Total 1200 Balance 1200 Intake: Intake, IV Titration 1200 Amount Sodium Chloride 0.9% 1, 1200 000 ml @ 100 mls/hr IV . Q10H [facility] Rx#:[id number] Other: # Voids 1 Weight 45.813 kg - Constitutional General appearance: disheveled, severe distress - EENT Eyes: EOMI, PERRLA Ears: bilateral: normal - Neck Neck: normal ROM Carotids: bilateral: upstroke normal Thyroid: negative: normal size - Respiratory Respiratory: left: diminished, dullness - Cardiovascular Rhythm: regular Heart sounds: normal: S1, S2 - Gastrointestinal General gastrointestinal: soft - Integumentary Integumentary: normal turgor - Neurologic Neurologic: CNII-XII intact - Musculoskeletal Musculoskeletal: gait normal, generalized weakness, strength equal bilaterally - Psychiatric Psychiatric: A&O x's 3, appropriate affect, intact judgment & insight Results - Laboratory Findings CBC and BMP: 08/17/21 16:32 08/17/21 16:32 PT/INR, D-dimer PT 10.6 sec (9.0-12.0) 08/17/21 16:32 INR 1.0 (<1.2) 08/17/21 16:32 D-Dimer 3.96 mg/L FEU (<0.60) H 08/17/21 16:32 Abnormal lab findings: Abnormal Labs 08/17/21 08/17/21 08/17/21 16:32 16:32 16:32 WBC 13.5 H Neutrophils # 11.5 H APTT 21.2 L D-Dimer 3.96 H Sodium 129 L - Diagnostic Findings Chest x-ray: report reviewed, image reviewed CT scan - chest: report reviewed, image reviewed (Finding as noted above) Assessment and Plan Assessment: Acute hypoxic respiratory failure Left-sided pneumonia Left-sided pleural effusion Hyponatremia Metastatic stage IV cancer from unknown primary Elevated d-dimer History of COPD Cachexia and weight loss Hypothyroidism Plan: Continue antibiotics Continue supplemental oxygen Deep breathing exercises incentive spirometry Patient will need left-sided thoracentesis procedure explained to the patient including risk alternative side effects and complications Time with Patient: Greater than 30
--- NOTE | 2021-08-18 13:21 | CDI ---
Documentation Clarification Form Date: 08/18/2021 01:03:34 PM From: Aisha Aparicio RN, CCDS Admit Date: 08/17/2021 07:37:00 PM Patient Name: Fely Wesley Visit Number: [id number] Discharge Date: ATTENTION: The Clinical Documentation Specialists (CDI) and [facility] Coding Staff appreciate your assistance in clarifying documentation. Please respond to the clarification below the line at the bottom and electronically sign. The CDI & [facility] Coding staff will review the response and follow-up if needed. Please note: Queries are made part of the Legal Health Record. If you have any questions, please contact the author of this message via ITS. Dr. Patrick Reilly The patient presented with the following clinical indicators. Additional clarification regarding the etiology/cause of the clinical indicators is requested. 08/17 19:30 Emergency department assessment: Patient does meet sepsis criteria. Blood cultures and lactic acid and IV antibiotics will be ordered. History/Risk Factors: COPD, Uterine cancer, Thyroid disorder Clinical Indicators: 55-year-old female present to Emergency Department with difficulty in breathing, progressively worsening. 08/17 1WBC:13.5, Neutrophils 11.5 08/17 Lactic acid: 1.1 08/17 Vital signs: (15:29) 133/87 102 18 99.2, 127/789 90 17 97.8 (21:30) Treatment: Duoneb inhalation RT-QID Azithromycin 500MG PO Daily Rocephin 2GM IVPB Q24 HR Solu-Medrol 125 MG, then 40 MG IVQ8 HRS 08/17 ID Consult: Antibiotics: IV Bolus: In your professional opinion, please clarify if these findings signify one of the following conditions: [ ] Sepsis POA [ ] Sepsis ruled out [ ] Other, please specify [ ] Unable to determine SIRS Criteria: 2 or more of the following may indicate SIRS -Temperature < 96.8F (36C) or > 101.0F (38.3C) -Heart Rate > 90 bpm -Respiratory Rate > 20 breaths/min or PaCO2 < 32 mmHg -White Blood Cell Count > 12,000 or < 4,000 cells/mm3 or > 10% bands (Template Last Reviewed: July 2020) MTDD
[2021-08-18 13:30] VITALS: BMI 17.3
--- NOTE | 2021-08-18 16:23 | P.CONS ---
History of Present Illness - Reason for Consult Consult date: 08/18/21 Metastatic lung cancer - History of Present Illness The patient is a 55-year-old white female with multiple medical issues. The patient was recently referred to her because of a new diagnosis of malignancy. The patient states that she has not felt well since falling and sustaining some trauma while painting her house, in late 04/13. She states that she had been having lower abdominal/pelvic, as well as bilateral upper leg pain and intermittent swelling. She eventually brought this to the attention of her PCP, and was evaluated by him. On exam she was found to have bilateral inguinal adenopathy. The patient then underwent imaging which showed multiple suspicious findings including lesions in the liver, and adenopathy. She had ultrasound- guided biopsy of the liver lesion on 07/14/21 at [facility]. This came back positive for metastatic poorly differentiated adenocarcinoma consistent with lung primary. The patient then had a PET scan on 08/08/21, that showed uptake in multiple areas, including left upper lobe lung nodule, left upper lobe peripherally and pleura, mediastinal and left hilar adenopathy, multiple liver lesions, as well as retroperitoneal and bilateral pelvic as well as inguinal adenopathy. In addition she was also noted to have bone metastasis including right pelvic bone and left mid thoracic spine Patient was alert was as an outpatient. She was initially not available when we attempted to contact her. She then called back on 08/17/21 stating that she was in the ER because of increasing shortness of breath and cough. Shortness of breath had been progressive over the past 2-3 weeks. The cough had started about 3-4 days ago. She denied any hemoptysis or significant expectoration. On evaluation here she was found to have a large left pleural effusion, and was admitted for further management. Labs also indicated the possibility of sepsis. Review of Systems Constitutional: Reports fatigue, Reports weight loss Eyes: denies blurred vision, denies pain Ears: deny: decreased hearing, ear discharge, earache, tinnitus Ears, nose, mouth and throat: Denies headache, Denies sore throat Cardiovascular: Reports chest pain, Reports shortness of breath Respiratory: Reports cough, Reports dyspnea, Reports pain Gastrointestinal: Denies abdominal pain, Denies diarrhea, Denies nausea, Denies vomiting Genitourinary: Denies dysuria, Denies hematuria Menstruation: Reports postmenopausal Musculoskeletal: Reports as per HPI, Reports low back pain, Reports muscle weakness Musculoskeletal: bilateral: hip pain Integumentary: Denies pruritus, Denies rash Neurological: Reports weakness Psychiatric: Reports anxiety Endocrine: Reports fatigue, Reports weight change Hematologic/Lymphatic: Reports as per HPI Past Medical History Past Medical History: Cancer, COPD, Thyroid Disorder Additional Past Medical History / Comment(s): uterine cancer sx History of Any Multi-Drug Resistant Organisms: None Reported Past Surgical History: Hysterectomy, Orthopedic Surgery Additional Past Surgical History / Comment(s): "pin put in finger on right hand". EGD WITH REPAIR OF "RIP " IN STOMACH Past Anesthesia/Blood Transfusion Reactions: No Reported Reaction Past Psychological History: No Psychological Hx Reported Smoking Status: Former smoker Past Alcohol Use History: None Reported Additional Past Alcohol Use History / Comment(s): QUIT SMOKING -2017 Past Drug Use History: None Reported - Past Family History Mother Family Medical History: COPD, Pneumonia Additional Family Medical History / Comment(s): of an aneurysm of the brain. Father Additional Family Medical History / Comment(s): of prostate and colon cancer. Brother(s) History Unknown: Yes Sister(s) Family Medical History: Thyroid Disorder Additional Family Medical History / Comment(s): sister from MRSA. other sister has lymphoma cancer Medications and Allergies Home Medications Medication Instructions Recorded Confirmed Type Levothyroxine Sodium [Synthroid] 75 mcg PO DAILY 11/18/18 08/17/21 History Albuterol Inhaler [Ventolin Hfa 2 puff INHALATION RT-QID PRN 08/17/21 08/17/21 History Inhaler] Umeclidinium Brm/Vilanterol Tr 1 puff INHALATION RT-DAILY 08/17/21 08/17/21 History [Anoro Ellipta 62.5-25 Mcg INH] Allergies Allergy/AdvReac Type Severity Reaction Status Date / Time aspirin Allergy Anaphylaxis Verified 08/17/21 18:39 codeine Allergy Anaphylaxis Verified 08/17/21 18:39 morphine Allergy Anaphylaxis Verified 08/17/21 18:39 Physical Exam Vitals: Vital Signs Temp Pulse Pulse Resp BP BP Pulse Ox 08/18/21 16:02 88 08/18/21 15:52 86 08/18/21 14:00 97.8 F 100 16 113/67 94 L 08/18/21 12:21 88 18 08/18/21 12:10 88 18 08/18/21 08:28 88 18 08/18/21 08:18 87 18 97 08/18/21 08:00 18 08/18/21 07:44 97.7 F 73 16 114/70 92 L 08/18/21 01:10 98.4 F 72 14 110/62 92 L 08/17/21 21:30 97.8 F 90 17 127/78 95 08/17/21 21:02 97.7 F 08/17/21 20:54 88 08/17/21 20:49 85 08/17/21 19:46 85 18 125/75 98 Intake and Output 08/18/21 08/18/21 08/18/21 06:59 14:59 22:59 Intake Total 1200 Balance 1200 Intake: Intake, IV Titration 1200 Amount Sodium Chloride 0.9% 1, 1200 000 ml @ 100 mls/hr IV . Q10H [facility] Rx#:[id number] Other: # Voids 1 Weight 45.813 kg - Constitutional General appearance: mild distress - EENT Eyes: EOMI, PERRLA ENT: hearing grossly normal, normal oropharynx - Neck Neck: no lymphadenopathy - Respiratory Respiratory: left: diminished (At least lower two thirds of left lung field) - Cardiovascular Rhythm: regular Heart sounds: normal: S1, S2 - Gastrointestinal General gastrointestinal: normal bowel sounds, soft - Integumentary Integumentary: normal - Neurologic Neurologic: CNII-XII intact, focal deficits - Musculoskeletal Musculoskeletal: generalized weakness, strength equal bilaterally - Psychiatric Psychiatric: A&O x's 3, appropriate affect Results CBC & Chem 7: 08/17/21 16:32 08/17/21 16:32 Labs: Abnormal Lab Results - Last 24 Hours (Table) 08/17/21 08/17/21 08/17/21 Range/Units 16:32 16:32 16:32 WBC 13.5 H (3.8-10.6) k/uL Neutrophils # 11.5 H (1.3-7.7) k/uL APTT 21.2 L (22.0-30.0) sec D-Dimer 3.96 H (<0.60) mg/L FEU Sodium 129 L (137-145) mmol/L Comments: PET scan report reviewed Pathology report reviewed Chest x-ray: report reviewed CT scan - chest: report reviewed Assessment and Plan (1) Metastatic lung cancer (metastasis from lung to other site) Narrative/Plan: The patient has a recent diagnosis of the same, with diagnostic circumstances as described above. She was referred to us as an outpatient. However she came into the emergency room before she could be seen in the office. -The patient has had pathologic diagnosis, as well as PET scan, that has shown widespread metastatic disease. The pathologic diagnosis, staging and indications were discussed in detail with her. She was advised that this appears to be an aggressive malignancy, which is metastatic and therefore not curable. The objective of treatment would be prolongation of life and palliation of symptoms. -The patient will have MRI of the brain to complete staging. -Case was discussed in detail with the primary attending, as well as pulmonary medicine. At this time the patient will proceed to therapeutic thoracentesis. Cytology will be checked on the pleural fluid. She'll also be treated supportively for presumed pneumonia. - Injurious will be ordered on a tissue sample. Patient will then follow-up in the office to start systemic therapy. If she does not have a specific by marker, she'll be treated with carboplatin, Alimta, and Keytruda in the first line Current Visit: Yes Status: Acute Code(s): C34.90 - MALIGNANT NEOPLASM OF UNSP PART OF UNSP BRONCHUS OR LUNG SNOMED Code(s): 55740868 (2) Pleural effusion Narrative/Plan: Symptomatic. Likely malignant. Case discussed with bowel movements and. There setting the patient up for thoracentesis. It was discussed with the patient that if there is rapid reaccumulation, then chest tube placement will need to be considered Current Visit: Yes Status: Acute Code(s): J90 - PLEURAL EFFUSION, NOT ELSEWHERE CLASSIFIED SNOMED Code(s): 53111129
--- NOTE | 2021-08-18 16:33 | P.PCN ---
Date of Procedure: 08/18/21 Preoperative Diagnosis: Pneumonia, parapneumonic effusion, metastatic stage IV adenocarcinoma Postoperative Diagnosis: As above Procedure(s) Performed: Left thoracentesis Anesthesia: local Surgeon: Jayme Mckeon Estimated Blood Loss (ml): 1 Pathology: other Condition: stable Disposition: floor Indications for Procedure: Shortness of breath, pneumonia, parapneumonic effusion, metastatic stage IV adenocarcinoma Operative Findings: As below Description of Procedure: Patient prepared and draped in the usual fashion informed consent obtained from the patient, ultrasound was utilized to locate the maximum depth of the fluid. 2% lidocaine was given at eighth intercostal, needle was advanced to axis into the pleural space yellowish pleural fluid was aspirated followed by a stab incision of less than 1/8 of a centimeter to that S have incision catheter in needle was placed needle was withdrawn catheter left in position approximately 1.2 L of dark yellow to brown pleural fluid aspirated patient tolerated procedure well no complication noted post procedure chest x-rays pending .
--- NOTE | 2021-08-18 17:26 | XR ---
EXAMINATION TYPE: XR chest 1V portable DATE OF EXAM: 08/18/2021 COMPARISON: Chest x-ray 08/18/2021 at earlier time HISTORY: Status post left thoracentesis TECHNIQUE: Single frontal view of the chest is obtained. FINDINGS: There is some improvement in aeration at the left lung base. No evident pneumothorax. No o ther significant interval change. IMPRESSION: No evident complication status post left thoracentesis.
--- NOTE | 2021-08-18 18:03 | PN ---
PROGRESS NOTE This is a 55-year-old white female. She still remains on broad-spectrum antibiotics and steroids. CT scan shows left upper lobe pneumonia, large pleural effusion. Dr. Mckeon came in today and did a stage IV adenocarcinoma pleural effusion tap; he took out 1.2 liters of fluid. Oncology saw her today for adenocarcinoma. She has metastatic lung cancer to the other side. They think it is an aggressive malignancy which is metastatic and therefore not curable. palliative treatment and MRI of the brain. She will need outpatient chemotherapy, cytology on the pleural fluid. Prognosis guarded. MMODL / IJN: [id number] /
[2021-08-19] MEDS: methylPREDNISolone SOD SUCCI 40 MG/ML 1 ML VIAL IV SCH ×4 (00:09→23:43)
[2021-08-19 00:48] LABS: Appearance,BF Clear
[2021-08-19 01:47] LABS: Glucose, BF Source Pleural Fluid; Glucose, Body Fluid 112 mg/dL; LDH, Body Fluid Source Pleural Fluid; T. Protein, Body Fluid Source Pleural Fluid; Total Protein, Body Fluid 3820 mg/dL
[2021-08-19] MEDS: SODIUM CHLORIDE 0.9% 1,000 ML IV SCH ×3 (01:55→20:49)
[2021-08-19] MEDS: SYNTHROID 75 MCG PO SCH (05:50)
[2021-08-19] MEDS: IPRATROPIUM-ALBUTEROL 3 ML NEB INHALATION SCH ×4 (07:56→20:04)
--- NOTE | 2021-08-19 08:10 | P.PN ---
Subjective Progress Note Date: 08/19/21 Principal diagnosis: Acute hypoxic respiratory failure Left-sided pneumonia Left-sided pleural effusion Hyponatremia Metastatic stage IV cancer from unknown primary Elevated d-dimer History of COPD Cachexia and weight loss Hypothyroidism 08/19/2021, patient seen and examined the rounds labs reviewed medications reviewed, hemodynamic status stable, patient remains afebrile oxygen saturation is 90-94% on 2 L oxygen, feels less short of breath compared to yesterday, pleu ral fluid was drained on the left side total protein is 3.8 LDH 318, culture results are pending cytology is pending, post procedure x-ray improvement in a deviation of left lung base no pneumothorax seen no immediate postoperative complication noted Patient is a 55-year-old female seen eval reexamined on fourth floor patient presented into the hospital with several day history of increasing shortness of breath breathing difficulty intermittent cough patient has end-stage lung disease due to severe COPD, this patient has been recently diagnosed on the basis of her scans to have metastatic cancer primary however is unknown, patient has not been evaluated by oncology, she used to smoke. Irregularly half to 1 pack per day till 2018 and then she is smoking currently she is short of breath with inability to say 3-4 word sentences, her chest x-ray revealed left-sided pleural effusion of moderate size ultrasound of the chest confirmed the effusion of moderate to large size, significant labs include leukocytosis with WBC 13,500, sodium of 129, computed tomography scan of the chest left basal infiltrate along with left-sided pleural effusion and liver lesions no PE seen him a currently patient is being seen with the visit to myself Rocephin and Solu-Medrol along with bronchodilators and continuation of home medications including Synthroid Objective - Vital Signs Vital signs: Vital Signs Temp 98.3 F 08/19/21 01:11 Pulse 90 08/19/21 08:05 Resp 17 08/19/21 01:11 BP 117/66 08/19/21 01:11 Pulse Ox 92 L 08/19/21 01:11 Intake & Output 08/18/21 08/19/21 08/19/21 18:59 06:59 18:59 Intake Total 1200 Balance 1200 Weight 45.813 kg Intake: Intake, IV Titration 1200 Amount Sodium Chloride 0.9% 1, 1200 000 ml @ 100 mls/hr IV . Q10H [facility] Rx#:[id number] Other: # Voids 3 - Exam - Constitutional General appearance: disheveled, severe distress - EENT Eyes: EOMI, PERRLA Ears: bilateral: normal - Neck Neck: normal ROM Carotids: bilateral: upstroke normal Thyroid: negative: normal size - Respiratory Respiratory: left: Improved air entry compared to yesterday exam - Cardiovascular Rhythm: regular Heart sounds: normal: S1, S2 - Gastrointestinal General gastrointestinal: soft - Integumentary Integumentary: normal turgor - Neurologic Neurologic: CNII-XII intact - Musculoskeletal Musculoskeletal: gait normal, generalized weakness, strength equal bilaterally - Psychiatric Psychiatric: A&O x's 3, appropriate affect, intact judgment & insight - Labs CBC & Chem 7: 08/17/21 16:32 08/17/21 16:32 Labs: Microbiology - Last 24 Hours (Table) 08/18/21 14:11 Anaerobic Culture - Preliminary Pleural Fluid 08/18/21 14:11 Acid Fast Bacilli Culture - Preliminary Pleural Fluid 08/18/21 14:11 Fungal Culture - Preliminary Pleural Fluid 08/17/21 18:55 Blood Culture - Preliminary Blood No Growth after 24 hours 08/17/21 19:10 Blood Culture - Preliminary Blood No Growth after 24 hours Assessment and Plan Assessment: Acute hypoxic respiratory failure Left-sided pneumonia Left-sided pleural effusion Hyponatremia Metastatic stage IV cancer from unknown primary Elevated d-dimer History of COPD Cachexia and weight loss Hypothyroidism Plan: Continue antibiotics Continue supplemental oxygen Deep breathing exercises incentive spirometry Status post left-sided thoracentesis on August 18 1.2 L of fluid has been drained tolerated well Time with Patient: Greater than 30
[2021-08-19] MEDS: AZITHROMYCIN 500 MG TAB PO SCH (08:21)
--- NOTE | 2021-08-19 13:23 | MR ---
EXAMINATION TYPE: MR brain wo/w con DATE OF EXAM: 08/19/2021 COMPARISON: MR brain 05/25/2017 HISTORY: Stage IV lung cancer, possible brain mets TECHNIQUE: Multiplanar, multisequence images of the brain and brainstem is performed without and with IV contras t, utilizing 4.5 mL intravenous Gadavist . FINDINGS: There has been interval development of multiple, too numerous to count enhancing lesions wi thin the brain. Largest lesion is within the midline at the level of the cerebellum posterior to the fourth ventricle and measures approximately 2 cm x 1.4 cm x 14 mm. There is no suspicious subacute in farct. No hemorrhage or hydrocephalus. Some scattered corresponding hyperintensity is present on inve rsion recovery and T2-weighted sequences. There is no hydrocephalus or midline shift, corpus callosum and cervical medullary junction are normal. No evident cerebellopontine angle mass. Orbits are symme tric. IMPRESSION: IMPRESSION: Metastatic disease
--- NOTE | 2021-08-19 23:43 | PN ---
PROGRESS NOTE Adenocarcinoma of the lung with pleural effusion, status post pleural tap. Remains on Rocephin and mycin. She had an MRI of her brain done today. MRI of the brain shows metastatic disease into the brain, tumors multiple, too numerous to count and lesion within the brain. Prognosis extremely guarded. Discussed that with the family. start aggressive chemotherapy in the near future. She is saturating 93% on 2 L. Blood pressure 130s over 70s. Temperature 97. Prognosis extremely guarded. Follow up in next 24 to 48 hours. MMODL / IJN: [id number] /
[2021-08-20] MEDS: SYNTHROID 75 MCG PO SCH (05:22)
--- NOTE | 2021-08-20 07:39 | P.PN ---
Subjective Progress Note Date: 08/20/21 Principal diagnosis: Acute hypoxic respiratory failure Left-sided pneumonia Left-sided pleural effusion Hyponatremia Metastatic stage IV cancer from unknown primary Elevated d-dimer History of COPD Cachexia and weight loss Hypothyroidism August 20 2021, patient seen eval examined during the rounds overall respiratory status remains stable, patient remains afebrile, oxygen saturation is stable from 90-94% 2 L oxygen, respiratory 18. 77 blood pressure 130/75, she remains on bronchodilator with DuoNeb along with IV steroids and Rocephin tolerating well, still getting IV fluids normal saline since drinking water and adequately would recommend to stop the IV fluid, cytology is pending from pleural fluid 08/19/2021, patient seen and examined the rounds labs reviewed medications reviewed, hemodynamic status stable, patient remains afebrile oxygen saturation is 90-94% on 2 L oxygen, feels less short of breath compared to yesterday, pleural fluid was drained on the left side total protein is 3.8 LDH 318, culture results are pending cytology is pending, post procedure x-ray improvement in a deviation of left lung base no pneumothorax seen no immediate postoperative complication noted Patient is a 55-year-old female seen eval reexamined on fourth floor patient presented into the hospital with several day history of increasing shortness of breath breathing difficulty intermittent cough patient has end-stage lung disease due to severe COPD, this patient has been recently diagnosed on the basis of her scans to have metastatic cancer primary however is unknown, patient has not been evaluated by oncology, she used to smoke. Irregularly half to 1 pack per day till 2018 and then she is smoking currently she is short of breath with inability to say 3-4 word sentences, her chest x-ray revealed left-sided pleural effusion of moderate size ultrasound of the chest confirmed the effusion of moderate to large size, significant labs include leukocytosis with WBC 13,500, sodium of 129, computed tomography scan of the chest left basal infiltrate along with left-sided pleural effusion and liver lesions no PE seen him a currently patient is being seen with the visit to myself Rocephin and Solu-Medrol along with bronchodilators and continuation of home medications including Synthroid Objective - Vital Signs Vital signs: Vital Signs Temp 97.9 F 08/20/21 01:27 Pulse 77 08/20/21 01:27 Resp 18 08/20/21 01:27 BP 131/75 08/20/21 01:27 Pulse Ox 93 L 08/20/21 01:27 Intake & Output 08/19/21 08/20/21 08/20/21 18:59 06:59 18:59 Other: Voiding Method Toilet Toilet # Voids 1 3 - Exam - Constitutional General appearance: disheveled, severe distress - EENT Eyes: EOMI, PERRLA Ears: bilateral: normal - Neck Neck: normal ROM Carotids: bilateral: upstroke normal Thyroid: negative: normal size - Respiratory Respiratory: left: Improved air entry compared to yesterday exam - Cardiovascular Rhythm: regular Heart sounds: normal: S1, S2 - Gastrointestinal General gastrointestinal: soft - Integumentary Integumentary: normal turgor - Neurologic Neurologic: CNII-XII intact - Musculoskeletal Musculoskeletal: gait normal, generalized weakness, strength equal bilaterally - Psychiatric Psychiatric: A&O x's 3, appropriate affect, intact judgment & insight - Labs CBC & Chem 7: 08/17/21 16:32 08/17/21 16:32 Labs: Microbiology - Last 24 Hours (Table) 08/18/21 14:11 Acid Fast Bacilli Smear - Final Pleural Fluid Acid Fast Bacilli Culture - Preliminary 08/17/21 18:55 Blood Culture - Preliminary Blood No Growth after 48 hours 08/17/21 19:10 Blood Culture - Preliminary Blood No Growth after 48 hours 08/18/21 14:11 Body Fluid Culture - Preliminary Pleural Fluid 08/18/21 14:11 Anaerobic Culture - Preliminary Pleural Fluid Assessment and Plan Assessment: Acute hypoxic respiratory failure Left-sided pneumonia Left-sided pleural effusion Hyponatremia Metastatic stage IV cancer from unknown primary Elevated d-dimer History of COPD Cachexia and weight loss Hypothyroidism Plan: Continue antibiotics Continue supplemental oxygen Deep breathing exercises incentive spirometry Status post left-sided thoracentesis on August 18 1.2 L of fluid has been drained tolerated well Encourage by mouth intake stop IV fluids increase activity as tolerated Time with Patient: Greater than 30
[2021-08-20] MEDS: SODIUM CHLORIDE 0.9% 1,000 ML IV SCH (07:49)
[2021-08-20] MEDS: methylPREDNISolone SOD SUCCI 40 MG/ML 1 ML VIAL IV SCH ×3 (08:04→23:31)
[2021-08-20] MEDS: ACETAMINOPHEN TAB 325 MG TAB PO PRN ×2 (08:07→20:16)
[2021-08-20] MEDS: IPRATROPIUM-ALBUTEROL 3 ML NEB INHALATION SCH ×4 (08:25→20:45)
[2021-08-20 09:04] LABS: Basophils # (A) 0.01 X 10*3/uL (0.00-0.10); Basophils % (A) 0 %; Eosinophils # (A) 0 X 10*3/uL (0.04-0.35); Eosinophils % (A) 0 %; HCT 36.1 % (37.2-46.3); HGB 11.5 g/dL (12.0-15.0); Immature Grans, Automated 0.8 %; Lymphocytes # (A) 0.63 X 10*3/uL (0.90-5.00); MCH 29.3 pg (27.0-32.0); MCHC 31.9 g/dL (32.0-37.0); MCV 92.1 fL (80.0-97.0); Monocytes # (A) 0.31 X 10*3/uL (0.20-1.00); Monocytes % (A) 1.5 %; NRBC Per 100 WBC 0 /100 WBCS (0.0-0.0); Neutrophils # (A) 19.69 X 10*3/uL (1.80-7.70); Neutrophils % (A) 94.7 %; Platelet Count 398 X 10*3/uL (140-440); RBC 3.92 X 10*6/uL (4.10-5.20); RDW 13.8 % (11.5-14.5); WBC 20.81 X 10*3/uL (4.50-10.00)
[2021-08-20 09:16] LABS: ALT 21 U/L (8-44); AST 21 U/L (13-35); African American GFR (CKD) 113.9 (60.0-200.0); Albumin 3.3 g/dL (3.8-4.9); Albumin/Globulin Ratio 1.51 (1.60-3.17); Alkaline Phosphatase 65 U/L (41-126); BUN/Creat Ratio 25.82 Ratio (12.00-20.00); Blood Urea Nitrogen 17.3 mg/dL (9.0-27.0); Calcium 8.7 mg/dL (8.7-10.3); Carbon Dioxide 20.4 mmol/L (20.0-27.5); Chloride 104 mmol/L (96-109); Globulin 2.2 g/dL (1.6-3.3); Glucose 103 mg/dL (70-110); Non-African American GFR(CKD) 98.3 (60.0-200.0); Potassium 5.2 mmol/L (3.5-5.5); Sodium 134 mmol/L (135-145); Total Bilirubin <0.15 mg/dL (0.30-1.20); Total Protein 5.5 g/dL (6.2-8.2)
[2021-08-21] MEDS: SYNTHROID 75 MCG PO SCH (05:36)
[2021-08-21] MEDS: ACETAMINOPHEN TAB 325 MG TAB PO PRN (05:38)
[2021-08-21 08:13] VITALS: BP 155/76; RESP 18; TEMP 97.9
[2021-08-21] MEDS: methylPREDNISolone SOD SUCCI 40 MG/ML 1 ML VIAL IV SCH (08:24)
[2021-08-21] MEDS: IPRATROPIUM-ALBUTEROL 3 ML NEB INHALATION SCH ×2 (08:47→12:15)
[2021-08-21] MEDS ORDERED: DEXAMETHASONE SOD PHOSPHATE 10 MG/ML 1 ML VIAL IVP STA (10:55)
[2021-08-21] MEDS ORDERED: FAMOTIDINE 20 MG/2 ML VIAL IV SCH (11:00)
--- NOTE | 2021-08-21 11:39 | P.PN ---
Subjective Progress Note Date: 08/21/21 Principal diagnosis: Pneumonia, sepsis. Metastatic lung adenocarcinoma In f/u pt is breathing ok, she is pending O2. No fever, chest pain, denies any moderate or severe neurological symptoms, she can ambulate. Objective - Vital Signs Vital signs: Vital Signs Temp 97.9 F 08/21/21 08:00 Pulse 109 H 08/21/21 09:30 Resp 18 08/21/21 08:00 BP 155/76 08/21/21 08:00 Pulse Ox 86 L 08/21/21 09:30 Intake & Output 08/20/21 08/21/21 08/21/21 18:59 06:59 18:59 Other: Voiding Method Toilet Toilet # Voids 2 2 - Constitutional General appearance: Present: cooperative, no acute distress, thin (petite) - EENT Eyes: Present: EOMI ENT: Present: hearing grossly normal - Respiratory Details: resp even and unlabored at rest - Peripheral edema leg Peripheral Edema: bilateral: None - Musculoskeletal Musculoskeletal: Present: strength equal bilaterally - Psychiatric Psychiatric: Present: A&O x's 3, appropriate affect, intact judgment & insight - Labs CBC & Chem 7: 08/20/21 05:19 08/20/21 05:19 Labs: Microbiology - Last 24 Hours (Table) 08/18/21 14:11 Gram Stain - Preliminary Pleural Fluid Body Fluid Culture - Preliminary 08/20/21 08:28 Gram Stain - Preliminary Sputum Sputum Culture - Preliminary 08/18/21 14:11 Anaerobic Culture - Preliminary Pleural Fluid 08/17/21 19:10 Blood Culture - Preliminary Blood No Growth after 72 hours 08/17/21 18:55 Blood Culture - Preliminary Blood No Growth after 72 hours - Imaging and Cardiology MRI - head: report reviewed Assessment and Plan (1) Adenocarcinoma Current Visit: Yes Status: Acute Priority: High Code(s): C80.1 - MALIGNANT (PRIMARY) NEOPLASM, UNSPECIFIED SNOMED Code(s): 635909720 (2) Pleural effusion Current Visit: Yes Status: Acute Priority: High Code(s): J90 - PLEURAL EFFUSION, NOT ELSEWHERE CLASSIFIED SNOMED Code(s): 51064321 (3) Metastatic lung cancer (metastasis from lung to other site) Current Visit: Yes Status: Acute Priority: High Code(s): C34.90 - MALIGNANT NEOPLASM OF UNSP PART OF UNSP BRONCHUS OR LUNG SNOMED Code(s): 74160400 Plan: Dr. Goff reviewed MRI results, unfortunately showing numerous lesions. It was again discussed with pt and family that pt has metastatic disease and her cancer is not curable. Intent of treatment is to relieve symptoms of cancer and prolong life. All of this is dependent on pt tolerance to treatment and disease response to treatment. Brain mets-WBRT first. Discussed case with Radiation Oncologist. Oral steroids and PPI Erx to pt pharmacy Pending cytology on pleural fluid. F/U with Dr. Goff, appt in [place] plan Doctor attests: I performed a history and physical examination of this patient, developed impression and plan of care, discussed with dictator. I agree with dictators note, documented as a scribe.
[2021-08-21 12:17] VITALS: PULSE 92
--- NOTE | 2021-08-22 08:51 | CDI ---
Documentation Clarification Form Date: 08/18/2021 01:03:00 PM From: Aisha Aparicio RN, CCDS Admit Date: 08/17/2021 07:37:00 PM Patient Name: Fely Wesley Visit Number: [id number] Discharge Date: 08/21/2021 01:54:00 PM ATTENTION: The Clinical Documentation Specialists (CDI) and [facility] Coding Staff appreciate your assistance in clarifying documentation. Please respond to the clarification below the line at the bottom and electronically sign. The CDI & [facility] Coding staff will review the response and follow-up if needed. Please note: Queries are made part of the Legal Health Record. If you have any questions, please contact the author of this message via ITS. Dr. Patrick Reilly The patient presented with the following clinical indicators. Additional clarification regarding the etiology/cause of the clinical indicators is requested. 08/17 9:30 Emergency department assessment: Patient does meet sepsis criteria. Blood cultures and lactic acid and IV antibiotics will be ordered. History/Risk Factors: COPD, Uterine cancer, Thyroid disorder Clinical Indicators: 55-year-old female present to Emergency Department with difficulty in breathing, progressively worsening. 08/17 1WBC:13.5, Neutrophils 11.5 08/17 Lactic acid: 1.1 08/17 Vital signs: (15:29) 133/87 102 18 99.2, 127/789 90 17 97.8 (21:30) Treatment: Duoneb inhalation RT-QID Zithromycin 500MG PO Daily Rocephin 2GM IVPB Q24 HR Solu-Medrol 125 MG, then 40 MG IVQ8 HRS 08/17 .9ns @ 100MLS/HR (08/18-08/20) In your professional opinion, please clarify if these findings signify one of the following conditions: [ ] Sepsis POA [ ] Sepsis ruled out [ ] Other, please specify [ ] Unable to determine SIRS Criteria: 2 or more of the following may indicate SIRS -Temperature < 96.8F (36C) or > 101.0F (38.3C) -Heart Rate > 90 bpm -Respiratory Rate > 20 breaths/min or PaCO2 < 32 mmHg -White Blood Cell Count > 12,000 or < 4,000 cells/mm3 or > 10% bands (Template Last Reviewed: July 2020) MTDD
[2021-08-22] MEDS ORDERED: FAMOTIDINE 20 MG TAB PO SCH (09:00)
--- NOTE | 2021-08-22 10:11 | P.CONS ---
History of Present Illness - Reason for Consult Consult date: 08/21/21 brain metastases Requesting physician: Cj Goff - Chief Complaint Dyspnea, new diagnosis of lung cancer - History of Present Illness The patient is a 55-year-old female with a history of a newly diagnosed poorly differentiated adenocarcinoma of the left lung with metastatic disease involving the bone, liver and brain. She presented to the hospital on August 17 with si gnificant dyspnea, and was found to have a large left effusion. She is doing better following thoracentesis. The patient's oncologic history began back in March when she was complaining of right-sided hip and leg pain. She was also having swelling in the bilateral lower extremities. Her primary care physician and initiated workup after this failed to respond to conservative measures. She had a CT at an outside hospital showing disease involving the liver. On July 14, 2021 she underwent an ultrasound-guided biopsy of one of the 2 large liver masses which revealed poorly differentiated adenocarcinoma consistent with lung primary. She subsequently underwent a PET/CT on August 08 again at an outside institution, which did show metastatic disease involving the left lung, liver, pelvic and inguinal adenopathy and a few distinct bone lesions. The patient was planning to undergo further workup when she was admitted to the hospital on August 17 secondary to increased dyspnea. She underwent a CTA of the chest on August 17 showing a large left pleural effusion as well as concern for left upper lobe pneumonia. Note was made of a 5 cm lesion in the left lobe of the liver and a 4 cm right liver lesion. She underwent a thoracentesis on August 17 which revealed 1.2 L of dark yellow fluid. Pathology is pending at this time. She also underwent an MRI of the brain on August 19. This revealed 2 numerous to count multiple metastatic lesions throughout the bilateral cerebral hemispheres and posterior fossa. The largest lesion was a 2 cm midline cerebellar mass with surrounding edema. There is no significant midline shift. At this time, the patient reports that she has no significant pain. She is having increased dyspnea on exertion, but this is much improved from her initial admission. She is tentatively planning to start chemotherapy in the next 3 weeks under the care of Dr. Goff. NGS testing is pending. Review of Systems Constitutional: Denies chills, Denies fever Eyes: denies blurred vision Ears, nose, mouth and throat: Denies dysphagia, Denies headache Cardiovascular: Reports dyspnea on exertion, Denies chest pain Respiratory: Reports cough, Reports dyspnea, Denies hemoptysis Gastrointestinal: Denies abdominal pain Genitourinary: Denies flank pain Integumentary: Denies rash Neurological: Denies aphasia, Denies ataxia, Denies confusion, Denies convulsions, Denies gait dysfunction, Denies headaches, Denies numbness, Denies weakness Psychiatric: Denies anxiety, Denies confusion Past Medical History Past Medical History: Cancer, COPD, Thyroid Disorder Additional Past Medical History / Comment(s): uterine cancer sx History of Any Multi-Drug Resistant Organisms: None Reported Past Surgical History: Hysterectomy, Orthopedic Surgery Additional Past Surgical History / Comment(s): "pin put in finger on right hand". EGD WITH REPAIR OF "RIP " IN STOMACH Past Anesthesia/Blood Transfusion Reactions: No Reported Reaction Past Psychological History: No Psychological Hx Reported Smoking Status: Former smoker Past Alcohol Use History: None Reported Additional Past Alcohol Use History / Comment(s): QUIT SMOKING -2017 Past Drug Use History: None Reported - Past Family History Mother Family Medical History: COPD, Pneumonia Additional Family Medical History / Comment(s): of an aneurysm of the brain. Father Additional Family Medical History / Comment(s): of prostate and colon cancer. Brother(s) History Unknown: Yes Sister(s) Family Medical History: Thyroid Disorder Additional Family Medical History / Comment(s): sister from MRSA. other sister has lymphoma cancer Medications and Allergies Home Medications Medication Instructions Recorded Confirmed Type Levothyroxine Sodium [Synthroid] 75 mcg PO DAILY 11/18/18 08/17/21 History Albuterol Inhaler [Ventolin Hfa 2 puff INHALATION RT-QID PRN 08/17/21 08/17/21 History Inhaler] Umeclidinium Brm/Vilanterol Tr 1 puff INHALATION RT-DAILY 08/17/21 08/17/21 History [Anoro Ellipta 62.5-25 Mcg INH] Dexamethasone [Decadron] 4 mg PO TID #67 tablet 08/21/21 Rx Pantoprazole [Protonix] 40 mg PO DAILY #90 tab 08/21/21 Rx Allergies Allergy/AdvReac Type Severity Reaction Status Date / Time aspirin Allergy Anaphylaxis Verified 08/17/21 18:39 codeine Allergy Anaphylaxis Verified 08/17/21 18:39 morphine Allergy Anaphylaxis Verified 08/17/21 18:39 Physical Exam Vitals: Vital Signs Pulse 08/21/21 12:28 92 08/21/21 12:15 92 - Constitutional General appearance: thin - EENT Eyes: EOMI, PERRLA ENT: hearing grossly normal - Neck Neck: no lymphadenopathy - Respiratory Respiratory: right: CTA, left: diminished - Cardiovascular Rhythm: regular - Gastrointestinal General gastrointestinal: no distended, no tenderness - Integumentary Integumentary: calor, no cellulitis - Neurologic Neurologic: CNII-XII intact - Musculoskeletal Musculoskeletal: gait normal, strength equal bilaterally - Psychiatric Psychiatric: A&O x's 3, appropriate affect, intact judgment & insight Results CBC & Chem 7: 08/20/21 05:19 08/20/21 05:19 Labs: Microbiology - Last 24 Hours (Table) 08/18/21 14:11 Gram Stain - Preliminary Pleural Fluid Body Fluid Culture - Preliminary 08/17/21 18:55 Blood Culture - Preliminary Blood No Growth after 96 hours 08/17/21 19:10 Blood Culture - Preliminary Blood No Growth after 96 hours 08/20/21 08:28 Gram Stain - Preliminary Sputum Sputum Culture - Preliminary MRI - head: report reviewed, image reviewed Assessment and Plan Assessment: The patient is a 55-year-old female with a history of a newly diagnosed poorly differentiated adenocarcinoma of the left lung with metastatic disease involving the bone, liver and brain. She presented to the hospital on August 17 with significant dyspnea, and was found to have a large left effusion. She is doing better following thoracentesis. Plan: As detailed above, the patient unfortunately presents with widely metastatic adenocarcinoma the lung. She was found to have numerous brain metastases, and this was not felt to be eligible for radiosurgery. We will request her outside imaging including her PET scan. I discussed that the patient would be recommended to undergo whole brain radiotherapy delivered over 2 weeks. I explained that we would like to start this urgently, as the patient needs to proceed with systemic therapy in the near future. She is agreeable to return to clinic tomorrow as an outpatient visit, as she is currently in the process of being discharge from the hospital. Time with Patient: Greater than 30
--- NOTE | 2021-08-25 15:03 | PN ---
PROGRESS NOTE Sepsis ruled in. MMODL / IJN: [id number] /
== END 2021-08-21 13:54 | disposition home or self-care (01) | DRG 871 ==
LOC: EC 15:13 → 4SSUR 19:37
PROVIDERS: ADMIT Family Medicine; ATTEND Family Medicine
PROC: 0W9B3ZZ Drainage of Left Pleural Cavity, Percutaneous Approach (ICD-10-PCS; principal; 2021-08-18)
DX: A41.9 Sepsis, unspecified organism (principal); J18.9 Pneumonia, unspecified organism; J96.01 Acute respiratory failure with hypoxia; G93.6 Cerebral edema; C34.92 Malignant neoplasm of unspecified part of left bronchus or lung; C78.7 Secondary malignant neoplasm of liver and intrahepatic bile duct; C79.51 Secondary malignant neoplasm of bone; C79.31 Secondary malignant neoplasm of brain; Z68.1 Body mass index [BMI] 19.9 or less, adult; E87.1 Hypo-osmolality and hyponatremia; R64 Cachexia; J44.0 Chronic obstructive pulmonary disease with (acute) lower respiratory infection; J91.8 Pleural effusion in other conditions classified elsewhere; Z20.822 Contact with and (suspected) exposure to COVID-19; E03.9 Hypothyroidism, unspecified; F17.210 Nicotine dependence, cigarettes, uncomplicated; Z79.890 Hormone replacement therapy; Z79.899 Other long term (current) drug therapy; Z85.42 Personal history of malignant neoplasm of other parts of uterus; Z90.710 Acquired absence of both cervix and uterus; Z80.0 Family history of malignant neoplasm of digestive organs; Z80.7 Family history of other malignant neoplasms of lymphoid, hematopoietic and related tissues; Z82.5 Family history of asthma and other chronic lower respiratory diseases
CPT/HCPCS: 36415; 70553; 71045; 71046; 71275; 76604; 80053; 82945; 83605; 83615; 83880; 84157; 84484; 85025; 85379; 85610; 85730; 87040; 87070; 87075; 87102; 87116; 87205; 87206; 87502; 87635; 88108; 88305; 88341; 88342; 89050; 93005; 94640; 94760; 96374; 99291

== ENCOUNTER 2021-09-11 10:43 | Inpatient (IN) | payer MEDICARE ==
[2021-09-11] MEDS ORDERED: FUROSEMIDE 10 MG/ML 4 ML VIAL IV STA (12:13)
[2021-09-11 12:31] LABS: Basophils % (A) 0 %; Eosinophils # (A) 0.2 k/uL (0-0.7); Eosinophils % (A) 1 %; HCT 37.1 % (34.0-46.0); HGB 12.7 gm/dL (11.4-16.0); Lymphocytes # (A) 0.6 k/uL (1.0-4.8); Lymphocytes % (A) 6 %; MCH 30.1 pg (25.0-35.0); MCHC 34.3 g/dL (31.0-37.0); MCV 87.9 fL (80.0-100.0); Mean Platelet Volume 7.1; Monocytes # (A) 0.5 k/uL (0-1.0); Monocytes % (A) 4 %; Neutrophils # (A) 9.3 k/uL (1.3-7.7); Neutrophils % (A) 88 %; Platelet Count 267 k/uL (150-450); RBC 4.23 m/uL (3.80-5.40); RDW 12.5 % (11.5-15.5); WBC 10.6 k/uL (3.8-10.6)
[2021-09-11 12:38] LABS: ALT 31 U/L (4-34); AST 38 U/L (14-36); African American GFR (CKD) >90 (>60 ml/min/1.73 sqM); Alkaline Phosphatase 84 U/L (38-126); Anion Gap 6 mmol/L; Blood Urea Nitrogen 15 mg/dL (7-17); Calcium 8.1 mg/dL (8.4-10.2); Carbon Dioxide 21 mmol/L (22-30); Chloride 90 mmol/L (98-107); Glucose 81 mg/dL (74-99); Non-African American GFR(CKD) >90 (>60 ml/min/1.73 sqM); Potassium 5.2 mmol/L (3.5-5.1); Total Bilirubin 0.8 mg/dL (0.2-1.3); Total Protein 5.7 g/dL (6.3-8.2)
[2021-09-11 12:40] LABS: Sodium 117 mmol/L (137-145)
--- NOTE | 2021-09-11 12:47 | XR ---
EXAMINATION TYPE: XR chest 2V DATE OF EXAM: 09/11/2021 COMPARISON: 08/18/2021 TECHNIQUE: PA and lateral views submitted. HISTORY: difficulty breathing FINDINGS: Spiculated nodule right midlung noted. Scoliosis of the spine. There is a marked progressive changes on the left with near complete opacification left hemithorax. Diffuse severe emphysematous changes no maninder. IMPRESSION: 1. Marked progression and consolidation of the left with now near complete opacification left hemitho rax. Endobronchial lesion, mucous plug and pleural effusion with consolidation in the differential di agnosis. Patient has a known history of previous malignancy. 2. Persistent spiculated density right midlung.
[2021-09-11 12:51] LABS: Partial Thromboplastin Time 22.1 sec (22.0-30.0); Prothrombin Time 10.6 sec (9.0-12.0)
--- NOTE | 2021-09-11 13:13 | US ---
EXAMINATION TYPE: US venous doppler duplex LE DATE OF EXAM: 09/11/2021 1:04 PM COMPARISON: NONE CLINICAL HISTORY: leg swelling. Bilateral leg swelling. No redness. Brain Ca with mets. SIDE PERFORMED: Bilateral TECHNIQUE: The lower extremity deep venous system is examined utilizing real time linear array sonog raúl with graded compression, doppler sonography and color-flow sonography. VESSELS IMAGED: Common Femoral Vein Deep Femoral Vein Greater Saphenous Vein * Femoral Vein Popliteal Vein Small Saphenous Vein * Proximal Calf Veins (* superficial vessels) Enlarged lymph nodes visualized in bilateral groin Right Leg: Negative for DVT Left Leg: Negative for DVT IMPRESSION: 1. No diagnostic evidence of DVT as visualized. 2. Right groin lymphadenopathy.
[2021-09-11] MEDS ORDERED: SODIUM CHLORIDE 0.9% 500 ML IV STA (13:20)
[2021-09-11] MEDS ORDERED: SODIUM CHLORIDE 0.9% 1,000 ML IV STA (13:20)
--- NOTE | 2021-09-11 13:31 | ED ---
SOB HPI - General Chief Complaint: Shortness of Breath Stated Complaint: bilat leg swelling Time Seen by Provider: 09/11/21 12:02 Source: patient Mode of arrival: ambulatory Limitations: no limitations - History of Present Illness Initial Comments: This 55-year-old female presents with a complaint of some shortness of breath as well as lower extremity edema. She states that she was diagnosed with lung cancer with metastases to her brain, bone, and liver approximately one month ago. She was hospitalized at our facility at that time. She feels as though her lower extremity swelling is likely due to being on steroids recently. She denies any history of DVT or PE. She does state that her legs feel weak and she has generalized weakness as well. She states that it is hard to ambulate due to the lower extremity swelling and shortness of breath and generalized weakness. She denies any known fevers or chills. When she was admitted to the hospital last month she also had pneumonia. She does admit to some left upper chest pain which she states is related to her cancer as this is where her cancer is located. She has been following up with oncology. She has some minimal abdominal pain more in her right upper quadrant where her liver cancer is. She denies any other complaints or modifying factors. - Related Data Home Medications Medication Instructions Recorded Confirmed Levothyroxine Sodium [Synthroid] 75 mcg PO DAILY 11/18/18 09/11/21 Albuterol Inhaler [Ventolin Hfa 2 puff INHALATION RT-QID PRN 08/17/21 09/11/21 Inhaler] Ipratropium-Albuterol Nebulize 3 ml INHALATION RT-QID 09/11/21 09/11/21 [Duoneb 0.5 mg-3 mg/3 ml Soln] Previous Rx's Medication Instructions Recorded Pantoprazole [Protonix] 40 mg PO DAILY #90 tab 08/21/21 Allergies Allergy/AdvReac Type Severity Reaction Status Date / Time aspirin Allergy Anaphylaxis Verified 09/11/21 14:01 codeine Allergy Anaphylaxis Verified 09/11/21 14:01 morphine Allergy Anaphylaxis Verified 09/11/21 14:01 Review of Systems ROS Statement: Those systems with pertinent positive or pertinent negative responses have been documented in the HPI. ROS Other: All systems not noted in ROS Statement are negative. Past Medical History Past Medical History: Cancer, COPD, Thyroid Disorder Additional Past Medical History / Comment(s): uterine cancer sx History of Any Multi-Drug Resistant Organisms: None Reported Past Surgical History: Hysterectomy, Orthopedic Surgery Additional Past Surgical History / Comment(s): "pin put in finger on right hand". EGD WITH REPAIR OF "RIP " IN STOMACH Past Anesthesia/Blood Transfusion Reactions: No Reported Reaction Past Psychological History: No Psychological Hx Reported Smoking Status: Former smoker Past Alcohol Use History: None Reported Past Drug Use History: None Reported - Past Family History Mother Family Medical History: COPD, Pneumonia Additional Family Medical History / Comment(s): of an aneurysm of the brain. Father Additional Family Medical History / Comment(s): of prostate and colon cancer. Brother(s) History Unknown: Yes Sister(s) Family Medical History: Thyroid Disorder Additional Family Medical History / Comment(s): sister from MRSA. other sister has lymphoma cancer General Exam - General Exam Comments Initial Comments: GENERAL: The patient is well nourished and well hydrated. VITAL SIGNS: Heart rate, blood pressure, respiratory rate reviewed as recorded in nurse's notes. EYES: Pupils are round and reactive. Extraocular movements are intact. No conjunctival / lid redness or swelling. ENT: No external evidence of injury, swelling, or ecchymosis. Airway is patent. Throat is clear. NECK: Nontender. No swelling or evidence of injury. No subcutaneous emphysema. Trachea is midline. No thyroid mass. HEART: Regular rate and rhythm. Good peripheral pulses. Significant lower extremity edema noted bilaterally even into the bilateral proximal legs. This is pitting edema. LUNGS/CHEST: Breath sounds clear on the right side with decreased aeration noted to the left. No rales, rhonchi, or wheezes. No ecchymosis, subcutaneous emphysema, with mild tenderness left upper chest. ABDOMEN: Abdomen soft with mild tenderness noted to the right upper abdomen. No palpable masses or organomegaly. No peritoneal signs. No abdominal wall swelling or ecchymosis. EXTREMITIES: No extremity tenderness. Normal muscle tone and function. No thoracolumbar tenderness. NEUROLOGIC: Sensation is grossly intact. Cranial nerve exam reveals face is symmetrical, tongue is midline, speech is clear. SKIN: No abrasions or ecchymosis is noted. No induration or masses noted. PSYCHIATRIC: Alert and oriented. Appropriate behavior and judgment. Limitations: no limitations Course Vital Signs 09/11/21 09/11/21 09/11/21 10:47 11:38 12:50 Temperature 96.8 F L Pulse Rate 92 74 Respiratory 18 25 H 18 Rate Blood Pressure 122/80 124/81 O2 Sat by Pulse 99 100 Oximetry 09/11/21 09/11/21 14:00 16:37 Temperature Pulse Rate 78 82 Respiratory 18 16 Rate Blood Pressure 124/100 122/82 O2 Sat by Pulse 98 100 Oximetry Medical Decision Making - Medical Decision Making The patient is seen and examined. All diagnostics were reviewed. The EKG shows a normal sinus rhythm at a rate of 77. There is occasional nonspecific ST-T wave changes noted diffusely. The VA intervals 120, QRS duration is 101, and the QTc interval is 389. An IV is established. Due to her significant edema she initially is given 60 mg of Lasix intravenously. Her laboratory later does come back and this shows a significant hyponatremia at 117. There is also evidence of hypochloremia. Her d-dimer is significantly elevated. The chest x- ray shows almost complete opacification of the left lung which is worse than prior. There is also spiculation in the right lung which is persistent and likely related to her known cancer. She also had lower extremity venous Dopplers which did not show any evidence of DVT but there is some lymphade nopathy noted in the groin region. The computed tomography scan of the thorax does not show any evidence of pulmonary embolism. It does show significant opacification of the left chest with some mediastinal shift to the right with significant effusion noted.. There is associated lung cancer. There is worsening of the liver cancer as well. The edema likely is related to the patient's cancer. Due to her significant hyponatremia she is mildly hydrated. The patient has a very poor prognosis due to the severity of her cancer. This was discussed with the patient with family present. They are agreeable to admission and oncology will be consulted. It is felt as though they should have a long discussion with oncology in regard to the benefit of upcoming chemotherapy versus benefits of hospice care. Patient and family are agreeable. They would still like to have further evaluation and to thoracentesis. Case is discussed with Dr. Reilly who is agreeable with admission and states that he will see the patient tonight. - Lab Data Result diagrams: 09/11/21 12:17 09/11/21 12:17 Lab Results 09/11/21 09/11/21 09/11/21 Range/Units 12:17 12:17 12:17 WBC 10.6 (3.8-10.6) k/uL RBC 4.23 (3.80-5.40) m/uL Hgb 12.7 (11.4-16.0) gm/dL Hct 37.1 (34.0-46.0) % MCV 87.9 (80.0-100.0) fL MCH 30.1 (25.0-35.0) pg MCHC 34.3 (31.0-37.0) g/dL RDW 12.5 (11.5-15.5) % Plt Count 267 (150-450) k/uL MPV 7.1 Neutrophils % 88 % Lymphocytes % 6 % Monocytes % 4 % Eosinophils % 1 % Basophils % 0 % Neutrophils # 9.3 H (1.3-7.7) k/uL Lymphocytes # 0.6 L (1.0-4.8) k/uL Monocytes # 0.5 (0-1.0) k/uL Eosinophils # 0.2 (0-0.7) k/uL Basophils # 0.0 (0-0.2) k/uL PT 10.6 (9.0-12.0) sec INR 1.0 (<1.2) APTT 22.1 (22.0-30.0) sec D-Dimer 6.26 H (<0.60) mg/L FEU Sodium 117 L* (137-145) mmol/L Potassium 5.2 H (3.5-5.1) mmol/L Chloride 90 L (98-107) mmol/L Carbon Dioxide 21 L (22-30) mmol/L Anion Gap 6 mmol/L BUN 15 (7-17) mg/dL Creatinine 0.54 (0.52-1.04) mg/dL Est GFR (CKD-EPI)AfAm >90 (>60 ml/min/1.73 sqM) Est GFR (CKD-EPI)NonAf >90 (>60 ml/min/1.73 sqM) Glucose 81 (74-99) mg/dL Plasma Lactic Acid Mane (0.7-2.0) mmol/L Calcium 8.1 L (8.4-10.2) mg/dL Total Bilirubin 0.8 (0.2-1.3) mg/dL AST 38 H (14-36) U/L ALT 31 (4-34) U/L Alkaline Phosphatase 84 (38-126) U/L Troponin I (0.000-0.034) ng/mL NT-Pro-B Natriuret Pep pg/mL Total Protein 5.7 L (6.3-8.2) g/dL Albumin 3.0 L (3.5-5.0) g/dL 09/11/21 09/11/21 09/11/21 Range/Units 12:17 12:17 12:17 WBC (3.8-10.6) k/uL RBC (3.80-5.40) m/uL Hgb (11.4-16.0) gm/dL Hct (34.0-46.0) % MCV (80.0-100.0) fL MCH (25.0-35.0) pg MCHC (31.0-37.0) g/dL RDW (11.5-15.5) % Plt Count (150-450) k/uL MPV Neutrophils % % Lymphocytes % % Monocytes % % Eosinophils % % Basophils % % Neutrophils # (1.3-7.7) k/uL Lymphocytes # (1.0-4.8) k/uL Monocytes # (0-1.0) k/uL Eosinophils # (0-0.7) k/uL Basophils # (0-0.2) k/uL PT (9.0-12.0) sec INR (<1.2) APTT (22.0-30.0) sec D-Dimer (<0.60) mg/L FEU Sodium (137-145) mmol/L Potassium (3.5-5.1) mmol/L Chloride (98-107) mmol/L Carbon Dioxide (22-30) mmol/L Anion Gap mmol/L BUN (7-17) mg/dL Creatinine (0.52-1.04) mg/dL Est GFR (CKD-EPI)AfAm (>60 ml/min/1.73 sqM) Est GFR (CKD-EPI)NonAf (>60 ml/min/1.73 sqM) Glucose (74-99) mg/dL Plasma Lactic Acid Mane 1.4 (0.7-2.0) mmol/L Calcium (8.4-10.2) mg/dL Total Bilirubin (0.2-1.3) mg/dL AST (14-36) U/L ALT (4-34) U/L Alkaline Phosphatase (38-126) U/L Troponin I <0.012 (0.000-0.034) ng/mL NT-Pro-B Natriuret Pep 240 pg/mL Total Protein (6.3-8.2) g/dL Albumin (3.5-5.0) g/dL Disposition Clinical Impression: Primary lung cancer with metastasis from lung to other site, Bilateral lower extremity edema, Weakness, Hypochloremia, Hyponatremia, Elevated d-dimer, I nguinal lymphadenopathy, Pleural effusion Disposition: ADMITTED IP TO THIS HOSP Condition: Poor Is patient prescribed a controlled substance at d/c from ED?: No If prescribed controlled substance>3 days was MAPS reviewed?: Prescribed <3 Days Time of Disposition: 17:13 Decision Date: 09/11/21 Decision Time: 17:13
--- NOTE | 2021-09-11 15:07 | CT ---
EXAMINATION TYPE: CT angio chest DATE OF EXAM: 09/11/2021 COMPARISON: 08/17/2021 HISTORY: SOB TECHNIQUE: Contiguous axial scanning of the chest performed with IV Contrast, patient injected with 7 1 mL of Isovue 370. Coronal/sagittal MIP reconstructions performed. CT DLP: 189.4 mGycm Automated exposure control for dose reduction was used. FINDINGS: The heart is normal size with a moderate-sized basilar pericardial effusion measuring 1.4 cm thick, c oronal image 33. There is no flattening of the interventricular septum or reflux of contrast into the hepatic veins. The aorta normal caliber with conventional arch vessel branching anatomy. There is satisfactory opacification of the pulmonary arterial system. No pulmonary embolus is seen. There is now a massive left pleural effusion that results in nearly complete atelectasis of the left lung. This effusion results in mild rightward cardia mediastinal shift. Small emphysematous portions in the left apex shows some residual aeration. Suggestion of irregular pleural-based thickening throu ghout the left hemithorax. Irregular focal opacity posterior right midlung measuring 2.3 cm increased from 1.5 cm, previously. T here is some patchy posterior right upper lobe opacity that could represent scarring/atelectasis. In the visualized upper abdomen, there is thickening of the bilateral adrenal glands measuring up to 1.8 cm on the right, not significantly changed from higher. Large hepatic masses measure up to 6.6 cm on the left lobe and 4.5 cm in the right lobe (versus up to 5.3 cm, previously. Some prominent left axillary lymph nodes measure up to 1.4 cm. Vertebral body heights are maintained. Dextroconvex scoliosis. IMPRESSION: 1. NO EVIDENCE FOR PULMONARY EMBOLUS. 2. INCREASED, NOW MASSIVE LEFT PLEURAL EFFUSION RESULTING IN NEAR COMPLETE COLLAPSE OF THE LEFT LUNG AND SOME RIGHTWARD CARDIOMEDIASTINAL SHIFT. 3. SUSPECT DIFFUSE PLEURAL-BASED METASTASES OF THE LEFT HEMITHORAX. 4. BACKGROUND COPD WITH ADVANCED EMPHYSEMA. IRREGULAR OPACITY POSTERIOR RIGHT MID LUNG MEASURES 2.3 C M vs 1.5 CM, PREVIOUSLY. SOME PATCHY OPACITY POSTERIOR RIGHT UPPER LOBE COULD REPRESENT PNEUMONIA OR SCARRING/ATELECTASIS. CLINICALLY CORRELATE. 4. KNOWN HEPATIC METASTASES WHICH HAVE ENLARGED IN THE INTERVAL MEASURING UP TO 6.6 CM. KNOWN ADRENAL METASTASES.
[2021-09-11] MEDS ORDERED: ALBUTEROL NEBULIZED 2.5 MG/3 ML INHALATION PRN (17:14)
[2021-09-11] MEDS ORDERED: AZITHROMYCIN 500 MG in SODIUM CHLORIDE 0.9% 250 ML IVPB STA (17:16)
[2021-09-11] MEDS ORDERED: ONDANSETRON 4 MG/2 ML VIAL IVP PRN (17:17)
[2021-09-11] MEDS ORDERED: NALOXONE 0.4 MG/ML 1 ML VIAL IV PRN (17:17)
[2021-09-11] MEDS ORDERED: ACETAMINOPHEN TAB 325 MG TAB PO PRN (17:17)
--- NOTE | 2021-09-11 17:40 | US ---
EXAMINATION TYPE: US chest DATE OF EXAM: 09/11/2021 COMPARISON: CT chest 09/11/21 CLINICAL HISTORY: SOB/pleural effusion. hx pleural effusion, hx metastatic cancer TECHNIQUE: Targeted ultrasound of the posterior lower bilateral hemithoraces EXAM MEASUREMENTS: Left Pleural Effusion pocket size: 16.1 cm Left skin surface to fluid distance: 2.35 cm Right side NOT marked for possible thoracentesis outside the dept. Left side marked for possible thoracentesis outside the dept. Pulmonologists are able to review the images in the patient?s EMR. IMPRESSIONS: Moderate to large left pleural effusion.
[2021-09-11] MEDS: SODIUM CHLORIDE 0.9% 1,000 ML IV SCH (18:50)
[2021-09-11] MEDS ORDERED: PIPERACILLIN-TAZOBACTAM 3.375 GM in SODIUM CHLORIDE 0.9% 100 ML IVPB SCH (21:00)
[2021-09-11] MEDS: IPRATROPIUM-ALBUTEROL 3 ML NEB INHALATION SCH (21:33)
[2021-09-11] MEDS: HYDROmorphone 0.5 MG/0.5 ML SYRINGE IVP PRN (22:48)
[2021-09-12] MEDS: ENOXAPARIN 40 MG/0.4 ML SYRINGE SQ SCH ×2 (05:29→08:34)
[2021-09-12] MEDS: PANTOPRAZOLE 40 MG TABLET PO SCH (06:48)
[2021-09-12 08:02] LABS: Basophils % (A) 0 %; Eosinophils # (A) 0.1 k/uL (0-0.7); Eosinophils % (A) 1 %; HCT 37.3 % (34.0-46.0); HGB 12.5 gm/dL (11.4-16.0); Lymphocytes # (A) 0.4 k/uL (1.0-4.8); Lymphocytes % (A) 4 %; MCH 30.2 pg (25.0-35.0); MCHC 33.5 g/dL (31.0-37.0); Mean Platelet Volume 7.1; Monocytes # (A) 0.4 k/uL (0-1.0); Monocytes % (A) 4 %; Neutrophils # (A) 8.9 k/uL (1.3-7.7); Neutrophils % (A) 89 %; Platelet Count 319 k/uL (150-450); RBC 4.14 m/uL (3.80-5.40); RDW 13.5 % (11.5-15.5)
[2021-09-12 08:19] LABS: African American GFR (CKD) >90 (>60 ml/min/1.73 sqM); Anion Gap 6 mmol/L; Blood Urea Nitrogen 15 mg/dL (7-17); Calcium 8.2 mg/dL (8.4-10.2); Carbon Dioxide 22 mmol/L (22-30); Chloride 92 mmol/L (98-107); Glucose 70 mg/dL (74-99); Magnesium 1.8 mg/dL (1.6-2.3); Non-African American GFR(CKD) >90 (>60 ml/min/1.73 sqM); Phosphorus 3.9 mg/dL (2.5-4.5); Sodium 120 mmol/L (137-145)
[2021-09-12] MEDS: IPRATROPIUM-ALBUTEROL 3 ML NEB INHALATION SCH ×4 (08:20→19:58)
[2021-09-12] MEDS: LEVOTHYROXINE 75 MCG TAB PO SCH (08:33)
[2021-09-12] MEDS: SODIUM CHLORIDE 0.9% 1,000 ML IV SCH ×2 (08:34→21:21)
[2021-09-12] MEDS: PIPERACILLIN-TAZOBACTAM 3.375 GM in SODIUM CHLORIDE 0.9% 100 ML IVPB SCH ×3 (08:42→23:39)
--- NOTE | 2021-09-12 12:11 | P.CNPUL ---
History of Present Illness Consult date: 09/12/21 Reason for consult: dyspnea Chief complaint: Shortness of breath History of present illness: Patient is a lean cachectic 55-year-old female well-known to me patient has a stage IV metastatic lung cancer with metastases to the brain and bone and liver she has a large pleural effusion which was tapped previous admission came into the hospital with increasing shortness of breath and lower extremity edema in addition she was having lower extremity swelling also generalized weakness denies any fever or chills denies any cough or sputum production some pleuritic chest pain has been present she follows Dr. shepard from oncology. Her past Mr. medical history significant for hypothyroidism COPD extensive history of smoking and nicotine use, she also has a history of the uterine cancer, she quit smoking sometime ago used to smoke extensively but however could not quantify it, on arrival CBC within normal limit, the d-dimer was elevated at 6.26, sodium was only and 17 with protection of 5.2, calcium was 8.1 albumin 3.0 overweight is negative, chest x-ray showed near complete opacification of left hemithorax with persistent spiculated density in right midlung field, bilateral duplex ultrasound negative for DVT, a computed tomography scan of the chest revealed no evidence of pulmonary embolism massive pleural effusion near complete collapse of the left lung and right-sided mediastinal shift with pleural-based metastases into left hemithorax background COPD with irregular opacity in right midlung field 2.3 cm increase from 1.5 cm previously patchy pneumonia at the right base cannot be excluded along with known right metastatic mass in the liver and right known adrenal metastasis, ultrasound of the chest showed moderate to large pleural effusion on the left side. Patient is being treated with IV Zosyn and bronchodilator and pain control Review of Systems All systems: negative Past Medical History Past Medical History: Cancer, COPD, Thyroid Disorder Additional Past Medical History / Comment(s): uterine cancer sx CA BRAIN LUNGS PT STATES NOW EVERYWHERE History of Any Multi-Drug Resistant Organisms: None Reported Past Surgical History: Hysterectomy, Orthopedic Surgery Additional Past Surgical History / Comment(s): "pin put in finger on right hand". EGD WITH REPAIR OF "RIP " IN STOMACH Past Anesthesia/Blood Transfusion Reactions: No Reported Reaction Past Psychological History: No Psychological Hx Reported Smoking Status: Former smoker Past Alcohol Use History: None Reported Additional Past Alcohol Use History / Comment(s): QUIT SMOKING -2017 Past Drug Use History: None Reported - Past Family History Mother Family Medical History: COPD, Pneumonia Additional Family Medical History / Comment(s): of an aneurysm of the brain. Father Additional Family Medical History / Comment(s): of prostate and colon cancer. Brother(s) History Unknown: Yes Sister(s) Family Medical History: Thyroid Disorder Additional Family Medical History / Comment(s): sister from MRSA. other sister has lymphoma cancer Medications and Allergies Home Medications Medication Instructions Recorded Confirmed Type Levothyroxine Sodium [Synthroid] 75 mcg PO DAILY 11/18/18 09/11/21 History Albuterol Inhaler [Ventolin Hfa 2 puff INHALATION RT-QID PRN 08/17/21 09/11/21 History Inhaler] Pantoprazole [Protonix] 40 mg PO DAILY #90 tab 08/21/21 09/11/21 Rx Ipratropium-Albuterol Nebulize 3 ml INHALATION RT-QID 09/11/21 09/11/21 History [Duoneb 0.5 mg-3 mg/3 ml Soln] Allergies Allergy/AdvReac Type Severity Reaction Status Date / Time aspirin Allergy Anaphylaxis Verified 09/11/21 14:01 codeine Allergy Anaphylaxis Verified 09/11/21 14:01 morphine Allergy Anaphylaxis Verified 09/11/21 14:01 Physical Exam Vitals: Vital Signs Temp Pulse Pulse Resp BP BP BP 09/12/21 11:49 90 09/12/21 11:27 97.8 F 88 20 09/12/21 08:34 90 09/12/21 08:29 97.7 F 89 16 128/82 09/12/21 08:23 86 09/12/21 04:50 97.5 F L 84 18 115/70 09/11/21 21:49 78 09/11/21 21:33 77 09/11/21 21:23 98.2 F 86 18 124/78 09/11/21 21:15 98.2 F 86 18 124/78 09/11/21 20:00 76 20 114/81 09/11/21 16:37 82 16 122/82 09/11/21 14:00 78 18 124/100 09/11/21 12:50 74 18 124/81 BP Pulse Ox 09/12/21 11:49 09/12/21 11:27 111/78 98 09/12/21 08:34 09/12/21 08:29 98 09/12/21 08:23 96 09/12/21 04:50 97 09/11/21 21:49 09/11/21 21:33 99 09/11/21 21:23 97 09/11/21 21:15 97 09/11/21 20:00 98 09/11/21 16:37 100 09/11/21 14:00 98 09/11/21 12:50 100 Intake and Output 09/11/21 09/12/21 09/12/21 22:59 06:59 14:59 Output Total 250 Balance -250 Output: Urine 250 Other: Voiding Method External Catheter External Catheter Weight 49.895 kg - Constitutional General appearance: average body habitus, cooperative, disheveled - EENT Eyes: EOMI, PERRLA Ears: bilateral: normal - Neck Neck: normal ROM Carotids: bilateral: upstroke normal - Respiratory Respiratory: right: CTA, left: diminished, dullness - Cardiovascular Rhythm: regular Heart sounds: normal: S1, S2 - Gastrointestinal General gastrointestinal: normal bowel sounds - Integumentary Integumentary: decreased turgor - Neurologic Neurologic: CNII-XII intact - Musculoskeletal Musculoskeletal: gait normal, generalized weakness, strength equal bilaterally - Psychiatric Psychiatric: A&O x's 3, appropriate affect, intact judgment & insight Results - Laboratory Findings CBC and BMP: 09/12/21 06:27 09/12/21 06:27 PT/INR, D-dimer PT 10.6 sec (9.0-12.0) 09/11/21 12:17 INR 1.0 (<1.2) 09/11/21 12:17 D-Dimer 6.26 mg/L FEU (<0.60) H 09/11/21 12:17 Abnormal lab findings: Abnormal Labs 09/11/21 09/11/21 09/11/21 12:17 12:17 12:17 Neutrophils # 9.3 H Lymphocytes # 0.6 L D-Dimer 6.26 H Sodium 117 L* Potassium 5.2 H Chloride 90 L Carbon Dioxide 21 L Glucose Calcium 8.1 L AST 38 H Total Protein 5.7 L Albumin 3.0 L 09/12/21 09/12/21 06:27 06:27 Neutrophils # 8.9 H Lymphocytes # 0.4 L D-Dimer Sodium 120 L Potassium Chloride 92 L Carbon Dioxide Glucose 70 L Calcium 8.2 L AST Total Protein Albumin - Diagnostic Findings Chest x-ray: report reviewed, image reviewed CT scan - chest: report reviewed, image reviewed (Finding as noted above) Assessment and Plan Assessment: Large left-sided pleural effusion malignant Metastatic stage IV lung cancer Right lower lobe pneumonia Severe and significant hyponatremia likely hypervolemic Cachexia and weight loss and emaciated state Plan: Left-sided thoracentesis Fluid restriction Gentle rehydration Agree with broad-spectrum antibiotics Continue pain control Long-term prognosis is very guarded Time with Patient: Greater than 30
[2021-09-12 12:16] VITALS: BMI 18.8
[2021-09-12] MEDS: HYDROmorphone 0.5 MG/0.5 ML SYRINGE IVP PRN ×2 (13:06→18:48)
--- NOTE | 2021-09-12 14:40 | P.CONS ---
History of Present Illness - Reason for Consult Consult date: 09/12/21 Metastatic NSCLC Requesting physician: Bryce Tobias - Chief Complaint SOB - History of Present Illness The pt is a 55-year-old female with multiple medical issues including a new diagnosis of metastatic NSCLC in mid Jul 2021. Pt reported not feeling well since falling and sustaining some trauma while painting her house late 04/13. Preported pain in lower abdominal/pelvic area as well as bilateral upper leg pain with intermittent swelling. She eventually brought this to the attention of her PCP, and was evaluated by him. On exam, she was found to have bilateral inguinal adenopathy. The patient then underwent imaging which showed multiple suspicious findings including lesions in the liver and LAD. US-guided biopsy of the liver lesion on 07/14/21 at [facility], positive for metastatic poorly differentiated adenocarcinoma consistent with lung primary. Staging PET 08/08/21 showed uptake in multiple areas, including left upper lobe and pleura, mediastinal and left hilar adenopathy, multiple liver lesions, retroperitoneal, bilateral pelvic and inguinal adenopathy. In addition she was also noted to have bone metastasis including right pelvic bone and left mid thoracic spine. She was initially not available when we attempted to contact her for office f/u. She then called back on 08/17/21 stating that she was in the ER because of increasing shortness of breath and cough. On evaluation she was found to have a large left pleural effusion, labs indicated possibility of sepsis. She had thoracentesis 08/18, pl fluid + adenocarcinoma. MRI brain done to complete staging, unfortunately, positive for metastatic disease. She was discharged 08/21/21. She ended up completing WBRT last Saturday. She had a follow-up in the office with Dr. Goff tomorrow. she is currently admitted with progressive weakness and shortness of breath, she is having lower extremity swelling. CTA was negative for PE, bilateral lower extremities were negative for DVT. Chest US showed large left pleural effusion, pending thoracentesis. She states she has not been eating, she is expectorating thick yellow sputum, she was walking only very short distances at home. Patient stated that she does not want to do treatment, she wants to go home with hospice. Review of Systems 10 point review of systems is negative except as stated in HPI Past Medical History Past Medical History: Cancer, COPD, Thyroid Disorder Additional Past Medical History / Comment(s): uterine cancer sx CA BRAIN LUNGS PT STATES NOW EVERYWHERE History of Any Multi-Drug Resistant Organisms: None Reported Past Surgical History: Hysterectomy, Orthopedic Surgery Additional Past Surgical History / Comment(s): "pin put in finger on right hand". EGD WITH REPAIR OF "RIP " IN STOMACH Past Anesthesia/Blood Transfusion Reactions: No Reported Reaction Past Psychological History: No Psychological Hx Reported Smoking Status: Former smoker Past Alcohol Use History: None Reported Additional Past Alcohol Use History / Comment(s): QUIT SMOKING -2017 Past Drug Use History: None Reported - Past Family History Mother Family Medical History: COPD, Pneumonia Additional Family Medical History / Comment(s): of an aneurysm of the brain. Father Additional Family Medical History / Comment(s): of prostate and colon cancer. Brother(s) History Unknown: Yes Sister(s) Family Medical History: Thyroid Disorder Additional Family Medical History / Comment(s): sister from MRSA. other sister has lymphoma cancer Medications and Allergies Home Medications Medication Instructions Recorded Confirmed Type Levothyroxine Sodium [Synthroid] 75 mcg PO DAILY 11/18/18 09/11/21 History Albuterol Inhaler [Ventolin Hfa 2 puff INHALATION RT-QID PRN 08/17/21 09/11/21 History Inhaler] Pantoprazole [Protonix] 40 mg PO DAILY #90 tab 08/21/21 09/11/21 Rx Ipratropium-Albuterol Nebulize 3 ml INHALATION RT-QID 09/11/21 09/11/21 History [Duoneb 0.5 mg-3 mg/3 ml Soln] Allergies Allergy/AdvReac Type Severity Reaction Status Date / Time aspirin Allergy Anaphylaxis Verified 09/11/21 14:01 codeine Allergy Anaphylaxis Verified 09/11/21 14:01 morphine Allergy Anaphylaxis Verified 09/11/21 14:01 Physical Exam Vitals: Vital Signs Temp Pulse Pulse Resp BP BP BP 09/12/21 12:00 94 09/12/21 11:49 90 09/12/21 11:27 97.8 F 88 20 09/12/21 08:34 90 09/12/21 08:29 97.7 F 89 16 128/82 09/12/21 08:23 86 09/12/21 04:50 97.5 F L 84 18 115/70 03/21/22 21:49 78 09/11/21 21:33 77 09/11/21 21:23 98.2 F 86 18 124/78 09/11/21 21:15 98.2 F 86 18 124/78 09/11/21 20:00 76 20 114/81 09/11/21 16:37 82 16 122/82 BP Pulse Ox 09/12/21 12:00 09/12/21 11:49 09/12/21 11:27 111/78 98 09/12/21 08:34 09/12/21 08:29 98 09/12/21 08:23 96 09/12/21 04:50 97 09/11/21 21:49 09/11/21 21:33 99 09/11/21 21:23 97 09/11/21 21:15 97 09/11/21 20:00 98 09/11/21 16:37 100 Intake and Output 09/11/21 09/12/21 09/12/21 22:59 06:59 14:59 Output Total 250 Balance -250 Output: Urine 250 Other: Voiding Method External Catheter External Catheter Weight 49.895 kg 49.895 kg - Constitutional General appearance: cooperative, disheveled, no acute distress, thin - EENT dry mucous membranes Eyes: anicteric sclerae, EOMI ENT: hearing grossly normal - Neck Neck: no lymphadenopathy - Respiratory Respiratory: left: other (near absent breath sounds lower two thirds), bilateral: diminished - Cardiovascular Rhythm: regular Heart sounds: normal: S1, S2 Abnormal Heart Sounds: no systolic murmur, no diastolic murmur, no rub, no S3 Gallop, no S4 Gallop, no click, no other leg Peripheral Edema: bilateral: 2+ - Gastrointestinal General gastrointestinal: no absent bowel sounds, no decreased bowel sounds, no distended, no hepatomegaly, no hyperactive bowel sounds, normal bowel sounds, no organomegaly, no rigid, no scaphoid, soft, no splenomegaly, no tenderness, no umbilical hernia, no ventral hernia - Integumentary Integumentary: pale - Neurologic Neurologic: CNII-XII intact (grossly) - Musculoskeletal Musculoskeletal: generalized weakness - Psychiatric Psychiatric: A&O x's 3, appropriate affect, intact judgment & insight Results CBC & Chem 7: 09/12/21 06:27 09/12/21 06:27 Labs: Abnormal Lab Results - Last 24 Hours (Table) 09/12/21 09/12/21 Range/Units 06:27 06:27 Neutrophils # 8.9 H (1.3-7.7) k/uL Lymphocytes # 0.4 L (1.0-4.8) k/uL Sodium 120 L (137-145) mmol/L Chloride 92 L (98-107) mmol/L Glucose 70 L (74-99) mg/dL Calcium 8.2 L (8.4-10.2) mg/dL Chest x-ray: report reviewed CT scan - chest: report reviewed Venous US: report reviewed Assessment and Plan (1) Metastatic lung cancer (metastasis from lung to other site) Narrative/Plan: Diagnosed with metastatic non-small cell lung adenocarcinoma from liver biopsy at the end of June 2021. Staging PET revealed widespread metastatic disease. MRI of the brain revealed brain metastases. Patient is status post WBRT , completed 4 days ago. Patient has required thoracentesis for reaccumulation of malignant pleural fluid on the left 2. She was to meet with Medical Oncologist tomorrow to discuss NGS/PD-L1/TMB/MSI status results to see if the patient's tumor harbored any mutations for which targeted agents could be used. Patient was very clear, explaining to us, that she did not want to pursue any treatment for cancer. Confirmed that she did not want to discuss targeted therapy/immunotherapy options if her tumor was found to have a mutation amenable to such agents and she again confirmed that she wanted to go home with hospice. Did discuss the case over the phone with Case Management to confirm that patient has communicated consistently among providers and staff that she has decided that she wants to go home with hospice. Did advise patient that if any sort of drainage catheter was recommended from Pulmonary standpoint that she should have it done for palliation of her respiratory symptoms due to reaccumulating malignant pleural effusion. We will remain available if there are any questions or concerns. Current Visit: Yes Status: Acute Priority: High Code(s): C34.90 - MALIGNANT NEOPLASM OF UNSP PART OF UNSP BRONCHUS OR LUNG SNOMED Code(s): 98589005 Plan: attests: I have seen and examined patient, performed H&P, developed impression and plan of care. Discussed with dictator. Agree with dictation, documented as a scribe.
--- NOTE | 2021-09-12 18:43 | P.PCN ---
Date of Procedure: 09/12/21 Preoperative Diagnosis: Massive left pleural effusion Postoperative Diagnosis: As above Procedure(s) Performed: Left thoracentesis Anesthesia: local Surgeon: Jayme Mckeon Estimated Blood Loss (ml): 1 Condition: stable Disposition: floor Indications for Procedure: Shortness of breath massive large left pleural effusion Operative Findings: As below Description of Procedure: Patient prepared and draped in the usual fashion informed consent obtained from the patient and family procedure risk alternative side effect complication explained to them at length. Ultrasound was utilized to locate the maximum depth of fluid. One percent lidocaine was given and posterior wall at 7 the intercostal space stab incision was done of 1/8 of centimeter through the incision catheter in needle was placed catheter was withdrawn needle was left in position and 2.2 L of light hemorrhagic pleural fluid obtained patient tolerated procedure well no complication noted chest x-rays pending
--- NOTE | 2021-09-12 19:06 | XR ---
EXAMINATION TYPE: XR chest 1V portable DATE OF EXAM: 09/12/2021 7:01 PM COMPARISON: Radiograph most recent 09/11/2021 TECHNIQUE: XR chest 1V portable Frontal view of the chest. CLINICAL INDICATION:Female, 55 years old with history of post-thoracentesis; FINDINGS: Lungs/Pleura: Interval decrease in size of left pleural effusion improved aeration of the left lung. There remains loculated pleural effusion present. Emphysema changes of the right lung. Pulmonary vascularity: Unremarkable. Heart/mediastinum: Cardiomediastinal silhouette is partially obscured due to overlying and adjacent o pacities. Musculoskeletal: No acute osseous pathology. IMPRESSION: 1. Improved aeration the left lung with persistent pleural effusion with suspected loculations. 2. COPD changes most proximal right upper lung.
--- NOTE | 2021-09-12 20:23 | HP ---
HISTORY AND PHYSICAL DATE OF SERVICE: 09/11/2021 This 55-year-old white female was seen in the emergency room last night. She came in with a large perfusion. We got her a chest ultrasound that showed large amount of fluid there that will have to be drained prior to going home. She has metastatic cancer of the lung. She is refusing any kind of chemo. She has just finished up 11 days of radiation. She is still weak and tired and she cannot breathe due to large pleural effusion. She wants a hospice consult, which we are doing. MRI of the brain shows metastatic disease also. She is pending paracentesis for this and then we will be able to discharge her home either with hospice or without hospice. FAMILY HISTORY: See list. REVIEW OF SYSTEMS: See list, otherwise negative. PAST MEDICAL HISTORY: See list. All were reviewed. Allergies reviewed. Temperature 98, pulse 70s to 80s, respiratory rate 16 to 20, blood pressure 114 to 120s over 80s. Cardiovascular S1, S2. Lungs show decreased breath sounds at the base. Hematology negative Homans. GI soft, nontender. Psych fair mood and affect. ASSESSMENT: 1. Metastatic lung cancer. 2. Large pleural effusion. 3. Acute hypoxic respiratory distress. 4. Adenocarcinoma stage IV. PROGNOSIS: Guarded. Will get the pleural effusion and then discharge home. Treat with broad- spectrum antibiotics in the meantime. Prognosis guarded. MMODL / IJN: [id number] /
[2021-09-13 00:14] VITALS: RESP 16
[2021-09-13] MEDS: HYDROmorphone 0.5 MG/0.5 ML SYRINGE IVP PRN ×2 (02:09→13:52)
[2021-09-13 06:21] LABS: Appearance,BF Blood Tinged
[2021-09-13] MEDS: PANTOPRAZOLE 40 MG TABLET PO SCH (06:30)
[2021-09-13 06:57] LABS: LDH, Body Fluid Source Thoracentesis Fluid; T. Protein, Body Fluid Source Thoracentesis Fluid; Total Protein, Body Fluid 3080 mg/dL
[2021-09-13] MEDS: PIPERACILLIN-TAZOBACTAM 3.375 GM in SODIUM CHLORIDE 0.9% 100 ML IVPB SCH ×2 (08:30→16:14)
[2021-09-13] MEDS: LEVOTHYROXINE 75 MCG TAB PO SCH (08:30)
[2021-09-13] MEDS: ENOXAPARIN 40 MG/0.4 ML SYRINGE SQ SCH (08:30)
--- NOTE | 2021-09-13 08:32 | CDI ---
Documentation Clarification Form Date: 09/13/2021 08:02:32 AM From: Lydia Winston RN CCDS Admit Date: 09/11/2021 05:17:00 PM Patient Name: Fely Chacko Visit Number: [id number] Discharge Date: ATTENTION: The Clinical Documentation Specialists (CDI) and [facility] Coding Staff appreciate your assistance in clarifying documentation. Please respond to the clarification below the line at the bottom and electronically sign. The CDI & [facility] Coding staff will review the response and follow-up if needed. Please note: Queries are made part of the Legal Health Record. If you have any questions, please contact the author of this message via ITS. Dr. Jayme Mckeon Cachexia and weight loss and emaciated is documented 09/12, Pulmonary consult. Based on this information and the findings below, is there an additional diagnosis that is clinically appropriate for this patient? History/Risk Factors: 55-year-old female presents to the ED with shortness of breath and lower extremity edema. Medical History: COPD, Lung cancer stage IV, Metastatic brain cancer and malignant pleural effusion. 09/12, H&P. Clinical Indicators: Nutrition Assessment: Current BMI: 18.9 Nutrition intake: Poor; Concerns: Difficulty swallowing, Not tolerating diet and cannot breathe when she eats. Estimated Nutritional Needs, [place] body weight used : Energy Needs Kcal [id number]. Estimated Protein 54-64 grams a day. Nutritional Diagnosis: Inadequate oral intake. Related to decreased appetite, difficulty breathing, consuming 0% of meals. Treatment: Dietary Consult: See above Supplements: Patient declined supplement at this time. Lab monitoring: Chem panel Is there an additional diagnosis that is clinically appropriate for this patient? [ ] Mild Protein-Calorie Malnutrition [ ] Moderate Protein-Calorie Malnutrition [ x ] Severe Protein-Calorie Malnutrition [ ] Other condition, please specify [ ] Unable to Determine (Template Last Revised: August 2020) MTDD
[2021-09-13] MEDS: IPRATROPIUM-ALBUTEROL 3 ML NEB INHALATION SCH ×3 (08:48→15:43)
--- NOTE | 2021-09-13 11:58 | P.PN ---
Subjective Progress Note Date: 09/13/21 Principal diagnosis: Acute on chronic respiratory failure Large left-sided pleural effusion malignant Metastatic stage IV lung cancer Right lower lobe pneumonia Severe and significant hyponatremia likely hypervolemic Cachexia and weight loss and emaciated state 09/13/2021, patient seen eval examined during the rounds labs reviewed medications reviewed, status post left thoracentesis 2.2 L of dark pleural fluid aspirated patient tolerated procedure well, post procedure chest x-ray showed residual small left-sided pleural effusion no complication like pneumothorax have been seen, respiratory standpoint patient feels better less short of breath breathing more comfortably on 2 L oxygen saturations stable, cytology is pending, pleural fluid biochemistry consistent with exudative effusion. Patient is a lean cachectic 55-year-old female well-known to me patient has a st age IV metastatic lung cancer with metastases to the brain and bone and liver she has a large pleural effusion which was tapped previous admission came into the hospital with increasing shortness of breath and lower extremity edema in addition she was having lower extremity swelling also generalized weakness denies any fever or chills denies any cough or sputum production some pleuritic chest pain has been present she follows Dr. shepard from oncology. Her past Mr. medical history significant for hypothyroidism COPD extensive history of smoking and nicotine use, she also has a history of the uterine cancer, she quit smoking sometime ago used to smoke extensively but however could not quantify it, on arrival CBC within normal limit, the d-dimer was elevated at 6.26, sodium was only and 17 with protection of 5.2, calcium was 8.1 albumin 3.0 overweight is negative, chest x-ray showed near complete opacification of left hemithorax with persistent spiculated density in right midlung field, bilateral duplex ultrasound negative for DVT, a computed tomography scan of the chest revealed no evidence of pulmonary embolism massive pleural effusion near complete collapse of the left lung and right-sided mediastinal shift with pleural-based metastases into left hemithorax background COPD with irregular opacity in right midlung field 2.3 cm increase from 1.5 cm previously patchy pneumonia at the right base cannot be excluded along with known right metastatic mass in the liver and right known adrenal metastasis, ultrasound of the chest showed moderate to large pleural effusion on the left side. Patient is being treated with IV Zosyn and bronchodilator and pain control Objective - Vital Signs Vital signs: Vital Signs Temp 97.5 F L 03/23/22 04:30 Pulse 94 09/13/21 08:00 Resp 16 09/13/21 08:00 BP 106/69 09/13/21 08:00 Pulse Ox 91 L 09/13/21 08:00 Intake & Output 09/12/21 09/13/21 09/13/21 18:59 06:59 18:59 Output Total 300 1100 0 Balance -300 -1100 0 Weight 49.895 kg Output: Urine 300 1100 Straight 550 Stool 0 Other: Voiding Method External Catheter External Catheter External Catheter # Bowel Movements 1 - Exam - Constitutional General appearance: average body habitus, cooperative, disheveled - EENT Eyes: EOMI, PERRLA Ears: bilateral: normal - Neck Neck: normal ROM Carotids: bilateral: upstroke normal - Respiratory Respiratory: right: CTA, left: diminished, dullness - Cardiovascular Rhythm: regular Heart sounds: normal: S1, S2 - Gastrointestinal General gastrointestinal: normal bowel sounds - Integumentary Integumentary: decreased turgor - Neurologic Neurologic: CNII-XII intact - Musculoskeletal Musculoskeletal: gait normal, generalized weakness, strength equal bilaterally - Psychiatric Psychiatric: A&O x's 3, appropriate affect, intact judgment & insight - Labs CBC & Chem 7: 09/12/21 06:27 09/12/21 06:27 Labs: Microbiology - Last 24 Hours (Table) 09/12/21 18:30 Acid Fast Bacilli Culture - Preliminary Thoracentesis Fluid 09/12/21 18:30 Fungal Culture - Preliminary Thoracentesis Fluid 09/11/21 18:55 Blood Culture - Preliminary Blood No Growth after 24 hours 09/11/21 18:08 Blood Culture - Preliminary Blood No Growth after 24 hours Assessment and Plan Assessment: Acute on chronic respiratory failure Large left-sided pleural effusion malignant, status post thoracentesis on 08/23 2.2 L removed Metastatic stage IV lung cancer Right lower lobe pneumonia Severe and significant hyponatremia likely hypervolemic Cachexia and weight loss and emaciated state Plan: Status post Left-sided thoracentesis, 2.2 L removed, cytology is pending to rule fluid finding consistent with exudative effusion Continue supplemental oxygen Continue bronchodilator Continue deep breathing exercise incentive spirometry Fluid restriction Gentle rehydration Agree with broad-spectrum antibiotics Continue pain control Long-term prognosis is very guarded Time with Patient: Greater than 30
[2021-09-13 12:15] VITALS: TEMP 97.1
[2021-09-13 16:16] VITALS: BP 89/53; PULSE 90
--- NOTE | 2021-09-13 18:03 | DS ---
DISCHARGE SUMMARY DATE OF ADMISSION: 09/11/2021 DATE OF DISCHARGE: 09/13/2021. DISCHARGE DIAGNOSIS: 1. Metastatic adenocarcinoma of the lung. 2. Large pleural effusion. 3. Generalized weakness. 4. Malnutrition. 5. Hypertension. 6. Chronic pain syndrome. 7. Hypothyroidism. She is going to go home with hospice today. She wants no chemotherapy started. She has finished 11 days of radiation, came in with extreme shortness of breath and chest pain, weakness, dehydration. She does not want any further treatments done. She wants to go home with hospice at this point. She had pleural effusion drained while in the hospital here. She will go home on her regular medicines, Ventolin HFA for shortness of breath, Synthroid 75 mcg daily, Protonix 40 mg daily, DuoNeb q.i.d. p.r.n. Prognosis guarded. Condition is poor but stable. She will follow up at home for comfort measures with hospice metastatic adenocarcinoma and she is tired of fighting, wants to go on hospice. MMODL / IJN: [id number] /
== END 2021-09-13 19:12 | disposition hospice, home (50) | DRG 180 ==
LOC: EC 10:43 → 5NMEDONC 17:17 → 3SCARD 18:05
PROVIDERS: ADMIT Family Medicine; ATTEND Family Medicine
PROC: 0W9B3ZZ Drainage of Left Pleural Cavity, Percutaneous Approach (ICD-10-PCS; principal; 2021-09-12)
DX: C34.90 Malignant neoplasm of unspecified part of unspecified bronchus or lung (principal); J96.21 Acute and chronic respiratory failure with hypoxia; E43 Unspecified severe protein-calorie malnutrition; J18.9 Pneumonia, unspecified organism; C79.31 Secondary malignant neoplasm of brain; C79.51 Secondary malignant neoplasm of bone; C78.7 Secondary malignant neoplasm of liver and intrahepatic bile duct; E87.1 Hypo-osmolality and hyponatremia; J44.0 Chronic obstructive pulmonary disease with (acute) lower respiratory infection; J91.0 Malignant pleural effusion; Z68.1 Body mass index [BMI] 19.9 or less, adult; Z20.822 Contact with and (suspected) exposure to COVID-19; E03.9 Hypothyroidism, unspecified; E87.70 Fluid overload, unspecified; E87.8 Other disorders of electrolyte and fluid balance, not elsewhere classified; G89.4 Chronic pain syndrome; I10 Essential (primary) hypertension; Z79.890 Hormone replacement therapy; Z79.899 Other long term (current) drug therapy; Z80.0 Family history of malignant neoplasm of digestive organs; Z80.7 Family history of other malignant neoplasms of lymphoid, hematopoietic and related tissues; Z82.5 Family history of asthma and other chronic lower respiratory diseases; Z85.42 Personal history of malignant neoplasm of other parts of uterus; Z90.710 Acquired absence of both cervix and uterus; Z87.891 Personal history of nicotine dependence; Z92.3 Personal history of irradiation; Z51.5 Encounter for palliative care; Z66 Do not resuscitate
CPT/HCPCS: 36415; 71045; 71046; 71275; 76604; 80048; 80053; 83605; 83615; 83735; 83880; 84100; 84157; 84484; 85025; 85379; 85610; 85730; 87040; 87077; 87102; 87116; 87206; 87635; 89050; 93005; 93970; 94640; 94760; 96361; 96365; 96367; 96375; 99285